=== PATIENT | male | born 1945 | race American Indian/Alaskan Native ===

== ENCOUNTER 2016-05-12 13:18 | Inpatient (IN) | payer MEDICARE ==
[2016-05-12] MEDS ORDERED: NORCO 5/325 PO ONE (14:57)
--- NOTE | 2016-05-12 15:04 | Emergency Department Report ---
HPI - General Chief Complaint: Fall Time Seen by Provider: 05/12/16 14:55 - HPI HPI: Chief complaint: Fall HPI: Patient is a 71-year-old male status post right BKA and left AKA who is wheelchair bound states he fell out of the bed earlier this morning and then was placed in a wheelchair and fell asleep and fell forward out of the wheelchair hitting his head. Patient complains of pain and swelling to his right eyebrow area and pain to his mid back patient states he did have some pain to his shoulder and elbow on his left arm but that has resolved. No chest or abdominal pain. Patient is not on any blood thinners. Mode of arrival: EMS] Source: Patient Began: Occurred this morning Duration: Today Context: See above Quality: Dull Severity: 10 out of 10 Improved with: Nothing Worsened with: Movement and palpation worsened since back pain Associated signs and symptoms: Hematoma to the right forehead and a knot to the right upper paralumbar and lower parathoracic musculature ED Past Medical Hx - Past Medical History Previous Medical History?: Yes Hx Hypertension: Yes Hx Heart Attack/AMI: Yes Hx Diabetes: Yes Hx GERD: Yes Hx Renal Disease: Yes (M W F; last dialysis yesterday) Hx Arthritis: Yes Hx Psychiatric Treatment: Yes (depression) Additional medical history: CAD. ESRD. hyperlipidemia. PVD. R BKA/L AKA - Surgical History Past Surgical History?: Yes Additional Surgical History: valve replacement 2011. 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 FISTULA LEFT ARM. TONSILLECTOMY - Social History Smoking Status: Former Smoker Substance Use Type: None - Medications Home Medications: Home Medications Medication Instructions Recorded Confirmed Last Taken Type Carvedilol [Coreg] 25 mg PO BID 06/18/14 03/19/16 Unknown History Cinacalcet HCl [Sensipar] 90 mg PO DAILY 06/18/14 03/19/16 Unknown History Gabapentin 200 mg PO TID 06/18/14 03/19/16 Unknown History AtorvaSTATin [Lipitor] 40 mg PO DAILY 02/14/16 03/19/16 Unknown History Aspirin [Aspirin BABY CHEW TAB] 81 mg PO QDAY #30 tab.chew 03/20/16 Unknown Rx Losartan [Cozaar] 25 mg PO QDAY tablet 04/06/16 Unknown Rx Sertraline [Zoloft] 50 mg PO QDAY tablet 04/06/16 Unknown Rx amLODIPine [Norvasc] 10 mg PO QDAY tablet 04/06/16 Unknown Rx hydrALAZINE [Apresoline TAB] 100 mg PO Q8HR tab 04/06/16 Unknown Rx traMADol [Ultram 50 MG tab] 50 mg PO Q6HR PRN #20 tablet 04/07/16 Unknown Rx ED Review of Systems ROS: Stated complaint: FALL Other details as noted in HPI ROS Constitutional: No fever ENT: No uri symptoms Cardiovascular: No chest pain Respiratory: No sob or cough GI: No nausea vomiting or diarrhea : No dysuria frequency or urgency, Skin: No rash Neuro: No focal weakness or numbness Psych: No depression Anderson/lymph: No edema Physical Exam - Physical Exam Vital Signs: Vital Signs 05/12/16 05/12/16 13:51 13:55 Temperature 98.1 F 98.1 F Pulse Rate 77 77 Respiratory 16 16 Rate Blood Pressure 157/78 Blood Pressure 157/78 [Right] O2 Sat by Pulse 98 98 Oximetry Physical Exam: GENERAL: The patient is a thin elderly -Prydeinig male in no acute distress HEENT: Normocephalic. Patient with a hematoma to the right superior orbital rim. Extraocular motions are intact. Patient has moist mucous membranes. NECK: Supple. Nontender No meningitic signs are noted. There is no adenopathy noted. CHEST/LUNGS: Clear to auscultation. There is no respiratory distress noted. HEART/CARDIOVASCULAR: Regular. There is no tachycardia. There is a systolic murmur ABDOMEN: Abdomen is soft, nontender. Patient has normal bowel sounds. There is no abdominal distention. SKIN: There is no rash. There is no edema. There is no diaphoresis. NEURO: The patient is awake, alert, and oriented. The patient is cooperative. The patient has no focal neurologic deficits. The patient has normal speech. MUSCULOSKELETAL: There is tenderness and spasm to the right mid back para spinal. Patient has a right BKA and a left AKA. Patient also has had his left index finger amputated. ED Course Vital Signs 05/12/16 05/12/16 13:51 13:55 Temperature 98.1 F 98.1 F Pulse Rate 77 77 Respiratory 16 16 Rate Blood Pressure 157/78 Blood Pressure 157/78 [Right] O2 Sat by Pulse 98 98 Oximetry - Reevaluation(s) Reevaluation #1: 05/12/16 15:04 Patient given Hallie 5 by mouth Reevaluation #2: 05/12/16 18:[address] lumbar with radiologist who recommends MRI with and without IV contrast to rule out discitis or osteomyelitis. Discussed with Dr. Lancaster the patient's space and [employer] who has agreed to dialyze the patient in the morning after the MR. Patient also was given 4 mg of morphine and 4 mg of Zofran IV. Reevaluation #3: 05/12/16 19:43 Patient was signed out to Dr. Pang. He will review the MRI readings and arrange for admission or transfer as needed. Hospitalist has been advised of this patient needing to be admitted here for dialysis in the morning if he does not require transfer to another facility. ED Medical Decision Making - Lab Data Result diagrams: 05/12/16 18:27 05/12/16 18:27 Laboratory Tests 05/12/16 05/12/16 18:27 18:27 ESR 43 Calcium 8.0 L C-Reactive Protein 3.80 H - Radiology Data Radiology results: report reviewed (CT of the head and C-spine showed a hematoma to the right forehead but no other acute abnormality. CT of the lumbar spine showed lytic lesion especially to L2-3 that was concerning for discitis or osteomyelitis and it was recommended that an MRI be performed.) interpreted by me: Plain thoracic: Lumbar spine showed abnormality L2-3 consistent with a lytic lesion and CT lumbar was ordered. Critical care attestation.: If time is entered above; I have spent that time in minutes in the direct care of this critically ill patient, excluding procedure time. ED Disposition Clinical Impression: ESRD (end stage renal disease) on dialysis, Lesion of lumbar spine Disposition: MEDICAL SCREENING EXAM-CONT Is pt being admited?: Yes Does the pt Need Aspirin: No Condition: Undetermined Time of Disposition: 19:42
--- NOTE | 2016-05-12 15:28 | Cat Scan Report ---
FINAL REPORT PROCEDURE: CT HEAD/BRAIN WO CON TECHNIQUE: Computerized tomography of the head was performed without contrast material. HISTORY: hematoma/ pain COMPARISON: Head CT dated February 14, 2016 FINDINGS: Diffuse soft tissue vascular calcifications are seen likely due to diabetes or abnormal calcium metabolism. Left-sided otitis media and mastoiditis are suspected, a changed appearance from prior study. Moderate changes of acute sinusitis are seen. Large hematoma is seen in the right side of the forehead and right periorbital region. No calvarial fracture is seen. Cerebral ventricles are normal in size. Old lacunar infarct is seen in the left side of the erick. Mild chronic small vessel ischemic changes are seen in the periventricular white matter. No acute CVA is seen. No acute intracranial hemorrhage or mass effect is seen. IMPRESSION: Large hematoma is seen in the right side of the forehead without evidence of calvarial fracture or acute intracranial hemorrhage. Changes of left-sided otitis media and mastoiditis are suspected and there are new moderate changes of sinusitis.
--- NOTE | 2016-05-12 15:33 | Cat Scan Report ---
FINAL REPORT PROCEDURE: CT CERVICAL SPINE WO CON TECHNIQUE: Computerized tomography of the cervical spine was performed from the skull base to T1 without contrast material. HISTORY: hematoma/ pain COMPARISON: No prior studies are available for comparison. FINDINGS: Cervical lordosis is preserved. Erosive arthritic changes are seen in the cervical spine. Ligamentum flavum calcification and uncovertebral osteophytes at C5-6 cause moderate central canal stenosis. Similar moderate stenosis is seen due to calcified disc bulge and ligamentum flavum hypertrophy at C4-5 and C3-4 as well as C6-7. There is no subluxation. No prevertebral edema is seen. No fracture is seen. Diffuse atherosclerotic calcifications are seen. IMPRESSION: No C-spine fracture is seen.
--- NOTE | 2016-05-12 17:38 | Cat Scan Report ---
FINAL REPORT PROCEDURE: CT LUMBAR SPINE WO CON TECHNIQUE: Computerized axial tomography of the lumbar spine was performed from T12 to the sacrum without contrast material. HISTORY: abn L2 on xray.pain fall COMPARISON: No prior studies are available for comparison. FINDINGS: Prominent erosive changes are seen at L2-3 with less prominent erosive changes at L4-5. Furthermore, central Schmorl's node formation is seen in the superior endplate of L2 and inferior endplate of T11. Discitis and osteomyelitis cannot be excluded at L2-3 as there appears to be mild adjacent soft tissue density. Correlation with contrast-enhanced MRI is recommended. Bones have a diffusely osteomalacia appearance, also. 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 Likely changes of polycystic renal disease are seen in the kidneys. L1-2: Mild posterior element hypertrophy and diffuse disc bulge cause little stenosis. L2-3: Posterior element hypertrophy and calcified diffuse disc bulge result in moderate central canal and prominent lateral recess stenosis. Uncovertebral osteophytes and posterior element hypertrophy cause moderate bilateral neural foraminal stenosis. L3-4: Calcified disc bulge and posterior element hypertrophy cause moderate lateral recess and neural foraminal narrowing with mild central canal narrowing. L4-5: Posterior element hypertrophy is seen with diffuse calcified disc bulge. Thecal sac effacement is seen with possible chronic compression. Prominent lateral recess stenosis is seen bilaterally with moderate to prominent bilateral neural foraminal stenosis. L5-S1: Calcified central disc bulge with posterior element hypertrophy result and mild right-sided and moderate left-sided neural foraminal stenosis with prominent lateral recess and moderate central canal stenosis. Other: None. IMPRESSION: Erosive changes are seen within the L2-3 disc space and vertebrae with possible adjacent mild soft tissue density. Findings are worrisome for possible discitis and osteomyelitis but other erosive arthritis is not excluded. Less prominent erosive changes are seen associated with the inferior endplate of L5. Further evaluation with contrast-enhanced MRI is recommended. Posterior element hypertrophy and chronic calcified disc bulges result in areas of significant stenosis as described above.
[2016-05-12] MEDS ORDERED: MORPHINE IV ONE (18:18)
[2016-05-12] MEDS ORDERED: ZOFRAN IV ONE (18:18)
[2016-05-12 18:51] LABS: Basophils % (Auto) 0.8 % (0.0-1.8); Eosinophils % (Auto) 2.4 % (0.0-4.3); Hematocrit 28.3 % (35.5-45.6); Mean Corpuscular HGB Conc 32 % (32-34); Mean Corpuscular Hemoglobin 28 pg (28-32); Mean Corpuscular Volume 89 fl (84-94); Platelet Count 342 K/mm3 (140-440); Red Cell Distribution Width 18.4 % (13.2-15.2); White Blood Count 8.8 K/mm3 (4.5-11.0)
[2016-05-12 18:55] LABS: BUN/Creatinine Ratio 6.66; C-Reactive Protein 3.8 mg/dL (0.00-1.30); Chloride 98.7 mmol/L (98-107); Potassium 3.3 mmol/L (3.6-5.0)
[2016-05-12 19:18] LABS: Erythrocyte Sedimentation Rate 43 mm/Hr (0-20)
--- NOTE | 2016-05-12 21:18 | Magnetic Resonance Report ---
FINAL REPORT PROCEDURE: MR LUMBAR SPINE WO/W CON TECHNIQUE: Magnetic resonance imaging of the lumbar spine was performed using standard pulse sequences before and after the IV injection of paramagnetic contrast. CPT 78263 HISTORY: abn CT c/w discitis osteomyelitis versus arthritis COMPARISON: CT exam from the same day. FINDINGS: The conus terminates at the L1 level. Edema is seen in the paraspinous musculature and subcutaneous fat of the lower back. This edema enhances and is worrisome for cellulitis. Similar enhancing edema is seen adjacent to the L2-3 disc space level. There is enhancement of the L2-3 disc which has heterogeneous hypointense T2 areas that have increased T1 hyperintensity possibly due to calcifications or mild hemorrhage. Minimal enhancement is suggested of the inferior endplate of L2 consistent with osteomyelitis. There is mild endplate enhancement anteriorly in the inferior endplate of L5 which could be due to degenerative endplate changes or possibly mild osteomyelitis. There is likely very minimal enhancement of the anterior aspect of the L5-S1 disc superiorly associated with the erosive area in the inferior endplate of L5. L1-2: Mild disc bulge is seen with no significant stenosis. L2-3: Uncovertebral osteophytes and posterior element hypertrophy cause prominent thecal sac effacement without compression. Moderate neural foraminal narrowing is seen. L3-4: Mild disc bulge and posterior element hypertrophy causes mild stenosis in the central canal, lateral recesses, and neural foramina L4-5: Posterior element hypertrophy and diffuse disc bulge with uncovertebral osteophytes causes moderate bilateral neural foraminal stenosis. Prominent central canal stenosis is seen with possible compression of the thecal sac. Prominent lateral recess stenosis is seen. L5-S1: Uncovertebral osteophytes are seen with calcified central disc bulge or protrusion. Prominent central canal narrowing is seen with thecal sac effacement but no definite compression. Prominent lateral recess stenosis is seen with moderate bilateral neural foraminal narrowing. Other: None . IMPRESSION: There is enhancement of the paraspinous musculature in the back as well as more anteriorly in the psoas musculature adjacent to the L2-3 level. These findings suggest cellulitis. No soft tissue abscess is seen. No epidural involvement is seen. Likely changes of discitis and osteomyelitis are seen within the L2-3 disc and the inferior endplate of L2 as well as the L5-S1 disc and inferior endplate of L5. L2 involvement is greater than L5 involvement. Consideration should be given to tuberculosis and other granulomatous infections in addition to the traditional bacterial infections. Chronic bony and discogenic changes in the lumbar spine cause areas of significant stenosis with possible thecal sac compression at L4-5 and L2-3.
[2016-05-12] MEDS ORDERED: VANCOMYCIN VIAL IV ONE (22:09)
[2016-05-12] MEDS ORDERED: MAXIPIME/NS 2 GM/100 ML 100 ML IV ONE (22:09)
--- NOTE | 2016-05-12 22:25 | Event Note ---
Date: 05/12/16 Patient had been signed out to me by Dr. Vasquez to follow-up MRI for concern of osteomyelitis versus discitis. MRI finished and appears to show evidence of cellulitis, discitis, possible myelitis. Patient on my exam does have tenderness to the lower thoracic spine, there is some slight swelling on the left side of the spine. Patient doesn't have any new neuro deficits on exam. A dose of vancomycin and cefepime has been ordered. Given that the patient does not have a space-occupying lesion or or abscess there is no need for neurosurgical intervention and the patient was endorsed to the hospitalist for admission.
[2016-05-12] MEDS ORDERED: VANCOMYCIN VIAL 1,250 MG in NACL 0.9% 250ML 250 ML IV ONE (22:30)
[2016-05-12] MEDS ORDERED: VANCOMYCIN PHARMACY TO DOSE IV SCH (23:00)
--- NOTE | 2016-05-12 23:12 | History and Physical Report ---
[id number] HTN, DM, ESRD on HD, CAD comes to the emergency room for evaluation of fall. The patient rolled out of bed this morning and fell on the floor. Later on in the day, he was napping in his wheel chair and he fell out of the chair and hit the right eye. He complained of back pain, mid back, sharp pain, constant, intensity 7/10, no radiation , better with pain medications Patient denies chest pain, palpitation, shortness of breath, cough, abdominal pain, hematochezia, dysuria, frequency, focal weakness, dysarthria, fever chills , polydipsia polyuria, hot or cold intolerance, easy bruisability, or rash or bleeding from mucosal membrane, rhinorrhea, epistaxis, earache, tinnitus, blurry vision, eye discharge, anxiety, depression. Other review of systems negative PAST SURGICAL HISTORY: Right BKA, left AKA, AV fistula SOCIAL HISTORY: Denies alcohol, tobacco, drugs FAMILY HISTORY: Hypertension Medications and Allergies Allergies Allergy/AdvReac Type Severity Reaction Status Date / Time No Known Allergies Allergy Verified 03/29/16 13:22 Home Medications Medication Instructions Recorded Confirmed Last Taken Type Carvedilol [Coreg] 25 mg PO BID 06/18/14 05/12/16 Unknown History Cinacalcet HCl [Sensipar] 90 mg PO DAILY 06/18/14 05/12/16 Unknown History Gabapentin 200 mg PO TID 06/18/14 05/12/16 Unknown History AtorvaSTATin [Lipitor] 40 mg PO DAILY 02/14/16 05/12/16 Unknown History Aspirin [Aspirin BABY CHEW TAB] 81 mg PO QDAY #30 tab.chew 03/20/16 05/12/16 Unknown Rx Losartan [Cozaar] 25 mg PO QDAY tablet 04/06/16 05/12/16 Unknown Rx Sertraline [Zoloft] 50 mg PO QDAY tablet 04/06/16 05/12/16 Unknown Rx amLODIPine [Norvasc] 10 mg PO QDAY tablet 04/06/16 05/12/16 Unknown Rx hydrALAZINE [Apresoline TAB] 100 mg PO Q8HR tab 04/06/16 05/12/16 Unknown Rx traMADol [Ultram 50 MG tab] 50 mg PO Q6HR PRN #20 tablet 04/07/16 05/12/16 Unknown Rx Active Meds: Active Medications Vancomycin HCl 1,250 mg/ (Sodium Chloride) 250 mls @ 166.667 mls/hr IV ONCE.ED ONE Stop: 05/12/16 23:59 Vancomycin HCl (Vancomycin Pharmacy To Dose) 1 each IV PKCONSULT JALEESA PRN Reason: Protocol Exam - Physical Exam Narrative exam: Gen. appearance: Patient lying in bed, no apparent distress HEENT: Normocephalic, atraumatic, pupils equally round and reactive to light, right eye is swollen, extraocular movement intact left eye, and no sclericterus ,. No JVD or thyromegaly or nodule,neck supple, no carotid bruit ,mucous membranes moist, no exudate or erythema Heart: S1, S2, regular rate and rhythm Lungs: Clear to auscultation bilaterally, breathing comfortable Abdomen: Positive bowel sounds, nontender, nondistended, no organomegaly Extremity: No edema, cyanosis, clubbing Skin: Sacral decubitus, No rash, nodules, warm, dry Neuro: Oriented 3, cranial nerves II-12 intact, speech is fluent, motor and sensory intact - Constitutional Vitals: Temp Pulse Resp BP Pulse Ox 98.1 F 74 16 137/62 95 05/12/16 13:55 05/12/16 23:01 05/12/16 23:01 05/12/16 23:01 05/12/16 23:01 Results - Labs CBC & Chem 7: 05/13/16 04:43 05/13/16 04:43 Labs: Abnormal lab results 05/12/16 05/12/16 Range/Units 18:27 18:27 RBC 3.20 L (3.65-5.03) M/mm3 Hgb 9.0 L (11.8-15.2) gm/dl Hct 28.3 L (35.5-45.6) % RDW 18.4 H (13.2-15.2) % Lymph % (Auto) 11.5 L (13.4-35.0) % [place] % (Auto) 8.6 H (0.0-7.3) % Lymph # 1.0 L (1.2-5.4) K/mm3 Seg Neutrophils % 76.7 H (40.0-70.0) % Potassium 3.3 L (3.6-5.0) mmol/L Creatinine 3.0 H (0.8-1.5) mg/dL Calcium 8.0 L (8.4-10.2) mg/dL C-Reactive Protein 3.80 H (0.00-1.30) mg/dL - Imaging and Cardiology CT Scan - head: report reviewed Assessment and Plan MRI, CT of spine reviewed Osteomylitis ESRD,need dialysis, s/p contrast Hypokalemia Hypertension CAD Diabetes 2 Sacral Decubitus Admiti to medicine s/p vancomycin, start zosyn, consult ID, follow blood cultures Check fingersticks, start insulin slidig scale, consult renal Continue outpatient medications, start dvt prophalaxis Consult wound care, replete potassium
--- NOTE | 2016-05-13 00:14 | Admit Criteria Form ---
Admission Criteria Documentation: RENAL FAILURE, CHRONIC Clinical Indications for Admission to Inpatient Care (Place 'X' for any and all applicable criteria): Admission is indicated for ANY ONE of the following (1)(2)(3)(4)(5): [ X]I. Inpatient admission required rather than observation care (Use Renal Failure, Chronic: Observation Care Criteria as appropriate) because of ANY ONE of the following: [ ]a) Volume overload or uremic symptoms (eg, clinically significant pulmonary edema, hypertension, pericarditis, acidosis) too severe for, or not responsive (eg, for over 24 hours) to emergency department or observation care dialysis or treatment regimen (11) [ ]b) Hemodynamic instability that is severe or persistent [ ]c) Respiratory distress that is severe or persistent (11) [ ]d) Clinically significant electrolyte abnormality that requires inpatient care (eg,hyperkalemia with severe ECG findings)[B] [ ]e) Supplement O2 or respiratory therapy for over 24hrs that is performable only in acute inpatient setting [ ]f) Continuous IV infusion of anticoagulation, platelet inhibitor, vasoactive, or Antiarrhythmic medication (15), [ ]g) Pulmonary artery catheter monitoring [ ]h) Temporary pacemaker placement [ ]i) Emergent pericardiocentesis [ X]j) Other condition, treatment or monitoring requiring inpatient admission [ ]II. Unexplained syncope [A] [ ]III. Recurrent seizures [ ]IV. Severe infections not treatable in outpatient setting (eg, peritonitis)(9 ) [ ]V. Cardiac arrhythmias of immediate concern [ ]. Encephalopathy [ ]VII.Bleeding abnormalities (eg, platelet dysfunction) with active (eg, gastrointestinal) bleeding Extended stay beyond goal length of stay may be needed for (3)(4)(35)(36): [ ]a) Continuing uremic complications [ ]b) Comorbidities or complications The original [employer] content created by [employer] has been revised. The portions of the content which have been revised are identified through the use of italic text or in bold, and [employer] has neither reviewed nor approved the modified material. All other unmodified content is copyright [employer]. Please see references footnoted in the original [email or web address] edition 2016 Admission Criteria Met: Yes
[2016-05-13] MEDS ORDERED: TYLENOL PO PRN (01:11)
[2016-05-13] MEDS ORDERED: MILK OF MAGNESIA PO PRN (01:11)
[2016-05-13] MEDS ORDERED: DULCOLAX PR PRN (01:11)
[2016-05-13] MEDS ORDERED: K-DUR PO ONE (01:11)
[2016-05-13] MEDS ORDERED: D50W (25GM) IV PRN (01:11)
[2016-05-13] MEDS: ZOSYN/NS 2.25 GM/50ML 50 ML IV SCH ×2 (02:32→10:00)
[2016-05-13 06:05] LABS: BUN/Creatinine Ratio 6.48; Calcium 8.2 mg/dL (8.4-10.2); Chloride 100.4 mmol/L (98-107); Potassium 3.1 mmol/L (3.6-5.0)
[2016-05-13 06:47] LABS: Basophils % (Auto) 0.5 % (0.0-1.8); Eosinophils % (Auto) 3.8 % (0.0-4.3); Hematocrit 30.5 % (35.5-45.6); Hemoglobin 9.8 gm/dl (11.8-15.2); Mean Corpuscular HGB Conc 32 % (32-34); Mean Corpuscular Hemoglobin 28 pg (28-32); Mean Corpuscular Volume 88 fl (84-94); Platelet Count 290 K/mm3 (140-440); Red Blood Count 3.47 M/mm3 (3.65-5.03); Red Cell Distribution Width 18.6 % (13.2-15.2); White Blood Count 8.8 K/mm3 (4.5-11.0)
[2016-05-13] MEDS: NOVOLOG SUB-Q SCH ×4 (07:50→22:32)
[2016-05-13] MEDS: LOVENOX SUB-Q SCH (09:51)
--- NOTE | 2016-05-13 09:57 | XRay Report ---
Thoracolumbar spine 2 views: History: Fall back pain. Findings: There is marked narrowing noted of the L2-L3 interspace with minimal narrowing of the L1-L2 interspace. The L2-L3 disc is obscured by overlying bowel gas. No obvious evidence of acute fracture is seen. There is degenerative changes noted at the lower thoracic and lumbar vertebral bodies. Calcified abdominal aorta without obvious evidence of aneurysm. Impression: Findings as detailed above. Correlation with CT findings or Mri may be advised.
[2016-05-13] MEDS: NORCO 5/325 PO PRN (12:01)
--- NOTE | 2016-05-13 12:27 | Consultation ---
History of Present Illness - Reason for Consult Consult date: 05/13/16 end stage renal disease - History of Present Illness Mr. Singh is a 71 yo with ESRD, PVD s/p amputation who presente to the ED following two falls at home. Marilee fell from bed onto floor, and later in the day, he was in his wheelchair when he fell forward, out of chair,hitting his right eye. Upon arrival to ED, patient reports back pain. He was admitted for further management Past History Past Medical History: anemia (secondary to ESRD), diabetes, ESRD, hypertension, PVD Past Surgical History: Other (revascularization, Right BKA, left AKA, AV fistula ) Social history: denies: smoking, alcohol abuse Family history: no significant family history Medications and Allergies Allergies Allergy/AdvReac Type Severity Reaction Status Date / Time No Known Allergies Allergy Verified 03/29/16 13:22 Home Medications Medication Instructions Recorded Confirmed Last Taken Type Carvedilol [Coreg] 25 mg PO BID 06/18/14 05/12/16 Unknown History Cinacalcet HCl [Sensipar] 90 mg PO DAILY 06/18/14 05/12/16 Unknown History Gabapentin 200 mg PO TID 06/18/14 05/12/16 Unknown History AtorvaSTATin [Lipitor] 40 mg PO DAILY 02/14/16 05/12/16 Unknown History Aspirin [Aspirin BABY CHEW TAB] 81 mg PO QDAY #30 tab.chew 03/20/16 05/12/16 Unknown Rx Losartan [Cozaar] 25 mg PO QDAY tablet 04/06/16 05/12/16 Unknown Rx Sertraline [Zoloft] 50 mg PO QDAY tablet 04/06/16 05/12/16 Unknown Rx amLODIPine [Norvasc] 10 mg PO QDAY tablet 04/06/16 05/12/16 Unknown Rx hydrALAZINE [Apresoline TAB] 100 mg PO Q8HR tab 04/06/16 05/12/16 Unknown Rx traMADol [Ultram 50 MG tab] 50 mg PO Q6HR PRN #20 tablet 04/07/16 05/12/16 Unknown Rx Active Meds: Active Medications Acetaminophen (Tylenol) 650 mg PO Q4H PRN PRN Reason: Pain MILD(1-3)/Fever >100.5/PORRAS Acetaminophen/Hydrocodone Bitart ([place] 5/325) 1 each PO Q8H PRN PRN Reason: Pain, Moderate (4-6) Last Admin: 05/13/16 12:01 Dose: 1 each Bisacodyl (Dulcolax) 10 mg DC QDAY PRN PRN Reason: Constipation unrelieved by MOM Dextrose (D50w (25gm)) 50 ml IV PRN PRN PRN Reason: Hypoglycemia Enoxaparin Sodium (Lovenox) 30 mg SUB-Q QDAY [facility] Last Admin: 05/13/16 09:51 Dose: 30 mg Insulin Aspart (Novolog) 0 units SUB-Q ACHS [facility] PRN Reason: Protocol Last Admin: 05/13/16 11:56 Dose: Not Given Magnesium Hydroxide (Milk Of Magnesia) 30 ml PO Q4H PRN PRN Reason: Constipation Morphine Sulfate (Morphine) 2 mg IV Q4H PRN PRN Reason: Pain, Moderate (4-6) Ondansetron HCl (Zofran) 4 mg IV Q8H PRN PRN Reason: N/V unrelieved by Reglan Review of Systems Constitutional: no fever, no chills Cardiovascular: no chest pain, no orthopnea, no shortness of breath Respiratory: no cough Gastrointestinal: no abdominal pain, no nausea, no vomiting, no diarrhea, no constipation, no BRBPR, no melena Genitourinary Male: no dysuria Integumentary: no rash Neurological: no weakness, no parathesias Exam - Vital Signs Vital signs: Vital Signs Pulse Ox 97 05/12/16 13:44 - General Appearance General appearance: well-developed, well-nourished Respiratory: Clear to Ascultation Heart: regular, S1S2 Gastrointestinal: Present: normal. Absent: tenderness, distended Integumentary: no rash Neurologic: no focal deficit Musculoskeletal: Present: other (Right BKA, left AKA) Psychiatric: mood/affect appropriate, cooperative Results - Lab Results 05/13/16 04:43 05/13/16 04:43 Most recent lab results Calcium 8.2 mg/dL (8.4-10.2) L 05/13/16 04:43 Assessment and Plan Impression: * End stage renal disease on hemodiaysis * Erosive changes L2-3, L5-S1 * Peripheral artery disease * Hypertension * Type II DM * Anemia secondary to ESRD * Secondary hyperparathyroidism Plan: * Imaging reviewed. Imaging was discussed with Dr. Ocampo and patient was cleared from a renal standpoint for CT w/ contrast. However, patient had MRI with contrast without approval of nephrology given risk of nephrogenic systemic fibrosis due to gadolinium. * Hemodialysis today * In light of gadolinium exposure, will plan for HD on Saturday and Saturday as well * Note plans for bone bx tomorrow * Epogen for goal Hb 10-12 * Renal diet
--- NOTE | 2016-05-13 12:36 | Consultation ---
History of Present Illness - Reason for Consult Consult date: 05/13/16 lumbar osteomyelitis/discitis - History of Present Illness Mr Singh is a 71y/o AA male with a known history of HTN, ESRD/HD/left AVF, PVD s/p left AKA, right BKA, bioprosthetic AVR ( 2009?), DM-2, Neuropathy, Anemia, HLD, and recent hospitalization 04/06 for sharla esophagitis.. He presents for admission on 05/12/16 status post a fall with right periorbital contusion/ hematoma. Following the fall he complained of low back pain. Imaging by CT and MRI raises questions regarding possible lumbar spine discitis/osteomyelitis. The patient on repeat questioning notes that his back pain started following this fall. He is unaware of any chronic back problems or spinal infection. The patient is unaware of his reasons for needing his aortic valve replacement. He is not aware of any infection of his previous heart valve. Currently the patient denies any fever or chills. He has slight nonproductive cough but no other focal symptoms of infection. He denies any headache or blurred vision. Patient has undergone a CT of his lumbar spine which showed erosive changes of L2-3 disc space and vertebral bodies with questionable adjacent soft tissue swelling raising the possible diagnosis of discitis/osteomyelitis. He then had a contrast enhanced MRI which shows enhanced paraspinous musculature at L2-3 with possible discitis/osteomyelitis at L2-3 and at the inferior endplate of L5. Chronic bone changes were otherwise noted with stenosis of L2-3, L4-5. Patient's C-reactive protein is 3.8. CBC shows a normal white count 8800 with 74% segs. Hemoglobin is 9.8. Platelet count 290,000. The patient initially received empiric Zosyn, cefepime and vancomycin. He is now seen for further ID follow. Medications and Allergies Allergies Allergy/AdvReac Type Severity Reaction Status Date / Time No Known Allergies Allergy Verified 03/29/16 13:22 Home Medications Medication Instructions Recorded Confirmed Last Taken Type Carvedilol [Coreg] 25 mg PO BID 06/18/14 05/12/16 Unknown History Cinacalcet HCl [Sensipar] 90 mg PO DAILY 06/18/14 05/12/16 Unknown History Gabapentin 200 mg PO TID 06/18/14 05/12/16 Unknown History AtorvaSTATin [Lipitor] 40 mg PO DAILY 02/14/16 05/12/16 Unknown History Aspirin [Aspirin BABY CHEW TAB] 81 mg PO QDAY #30 tab.chew 03/20/16 05/12/16 Unknown Rx Losartan [Cozaar] 25 mg PO QDAY tablet 04/06/16 05/12/16 Unknown Rx Sertraline [Zoloft] 50 mg PO QDAY tablet 04/06/16 05/12/16 Unknown Rx amLODIPine [Norvasc] 10 mg PO QDAY tablet 04/06/16 05/12/16 Unknown Rx hydrALAZINE [Apresoline TAB] 100 mg PO Q8HR tab 04/06/16 05/12/16 Unknown Rx traMADol [Ultram 50 MG tab] 50 mg PO Q6HR PRN #20 tablet 04/07/16 05/12/16 Unknown Rx Active Meds: Active Medications Acetaminophen (Tylenol) 650 mg PO Q4H PRN PRN Reason: Pain MILD(1-3)/Fever >100.5/PORRAS Acetaminophen/Hydrocodone Bitart ([place] 5/325) 1 each PO Q8H PRN PRN Reason: Pain, Moderate (4-6) Last Admin: 05/13/16 12:01 Dose: 1 each Bisacodyl (Dulcolax) 10 mg ND QDAY PRN PRN Reason: Constipation unrelieved by MOM Dextrose (D50w (25gm)) 50 ml IV PRN PRN PRN Reason: Hypoglycemia Enoxaparin Sodium (Lovenox) 30 mg SUB-Q QDAY [facility] Last Admin: 05/13/16 09:51 Dose: 30 mg Insulin Aspart (Novolog) 0 units SUB-Q ACHS [facility] PRN Reason: Protocol Last Admin: 05/13/16 11:56 Dose: Not Given Magnesium Hydroxide (Milk Of Magnesia) 30 ml PO Q4H PRN PRN Reason: Constipation Morphine Sulfate (Morphine) 2 mg IV Q4H PRN PRN Reason: Pain, Moderate (4-6) Ondansetron HCl (Zofran) 4 mg IV Q8H PRN PRN Reason: N/V unrelieved by Reglan Review of Systems Ears, nose, mouth and throat: other Physical Examination - Physical Exam Narrative exam: No acute distress. HEENT: Pupils are equal reactive to light and accommodation. Conjunctiva clear. Left upper and lower eyelid and periorbital swelling with minimal redness. Positive point tenderness. EOMs full. Vision grossly intact. Oropharynx is normal with no evidence of oral candidiasis or pharyngitis. Poor dentition. NECK: Supple. No enlargement of the thyroid gland. No significant cervical lymphadenopathy. No jugular venous distention at 30. LUNGS: Clear with no adventitious sounds. HEART: Regular rate. S1 and S2 are normal. Grade 3/6 systolic ejection murmur left sternal border. No diastolic murmur. No rub. ABDOMEN: Soft and nontender. Liver and spleen are not palpably enlarged or tender. No palpable masses. Bowel sounds are normoactive. EXTREMITIES: Healed wound sites noted at left AKA, right BKA stumps. Absence of left index finger following amputation. Mild low back point tenderness without overlying redness or apparent swelling. Positive thrill and bruit left upper extremity at fistula site. SKIN: No other rash, ulcers or wounds. NEUROLOGIC: No focal findings. - Constitutional Vitals: Vital Signs Temp Pulse Resp BP Pulse Ox 98.3 F 73 20 135/66 97 05/13/16 07:55 05/13/16 07:55 05/13/16 07:55 05/13/16 07:55 05/13/16 10:00 Temperature -Last 24 Hours Temperature 98.3 F Temperature 97.5 F Results - Labs CBC & Chem 7: 05/13/16 04:43 05/13/16 04:43 Labs: Abnormal lab results 05/13/16 05/13/16 05/13/16 Range/Units 04:43 04:43 11:19 RBC 3.47 L (3.65-5.03) M/mm3 Hgb 9.8 L (11.8-15.2) gm/dl Hct 30.5 L (35.5-45.6) % RDW 18.6 H (13.2-15.2) % Lymph % (Auto) 12.1 L (13.4-35.0) % [place] % (Auto) 9.4 H (0.0-7.3) % Lymph # 1.1 L (1.2-5.4) K/mm3 Seg Neutrophils % 74.2 H (40.0-70.0) % Potassium 3.1 L (3.6-5.0) mmol/L Carbon Dioxide 32 H (22-30) mmol/L BUN 24 H (9-20) mg/dL Creatinine 3.7 H (0.8-1.5) mg/dL Glucose 122 H (75-100) mg/dL POC Glucose 115 H (70-105) Calcium 8.2 L (8.4-10.2) mg/dL Assessment and Plan Assessment: Mr Singh is a 71y/o AA male with a known history of HTN, ESRD/HD/left AVF, PVD s/p left AKA, right BKA, bioprosthetic AVR ( 2009?), DM-2, Neuropathy, Anemia, HLD, and recent hospitalization 04/06 for sharla esophagitis.. He presents for admission on 05/12/16 status post a fall with right periorbital contusion/ hematoma. Following the fall he complained of low back pain. Imaging by CT and MRI raises questions regarding possible lumbar spine discitis/osteomyelitis. Antibiotics: Zosyn 2.25 g IV every 8 hour (05/13 Cefepime 2 g IV (05/12 Vancomycin IV ( 05/12 - 05/13) Conclusions: 1. R/O lumbar discitis/osteomyelitis - CT scan with erosive changes L2-3 and vertebral bodies with adjacent soft tissue swelling, erosive changes at L5 - MRI with contrast - enhanced paraspinous musculature at L2-3, R/O discitis/ osteomyelitis at L2-3 and inferior endplate of L5, chronic changes with stenosis L2-3, L4-5 2. Left periorbital contusion/hematoma status post fall - No obvious secondary infection 3. ESRD/HD 4. Status post bioprosthetic aortic valve replacement( ? 2009 [place]) 5. PVD - s/p left AKA, right BKA 6. DM2 7. HTN, anemia, HLD Recommendations: - Suggest IR lumbar biopsies for histology and culture - off antibiotics ( discussed with Dr. Giron ). Samples need to be sent for AFB/TB, fungus, and routine cultures - Check QuantiFERON TB gold assay - Glycemic control as per primary care - Renal follow-up - Blood cultures ordered. - Further recommendations to follow. Thank you.
[2016-05-13] MEDS ORDERED: NACL 0.9% 1000 ML 100 ML IV PRN (13:42)
--- NOTE | 2016-05-13 15:17 | Event Note ---
Date: 05/13/16 Nothing by mouth after midnight. Plan for CT-guided vertebral body biopsy tomorrow by Dr. Méndez.
--- NOTE | 2016-05-13 18:28 | Progress Note ---
Assessment and Plan - Patient Problems (1) Osteomyelitis of lumbar spine Current Visit: Yes Status: Acute Plan to address problem: ID consulted, continue current care, pending biopsy as per IR. (2) ESRD (end stage renal disease) on dialysis Current Visit: Yes Status: Chronic Plan to address problem: Nephrology consulted, dialysis as per nephrology service. (3) Acute on chronic renal failure Current Visit: No Status: Acute Plan to address problem: continue current care, dialysis as per nephrology, (4) Diabetes mellitus type 2 in nonobese Current Visit: No Status: Acute Plan to address problem: ADA diet, insulin, accu check (5) Hypertension Current Visit: No Status: Chronic Plan to address problem: monitor bp q shift, (6) DVT prophylaxis Current Visit: No Status: Acute History Interval history: Pt lying in bed, eating lunch, Pt denies pain. Pt daughter at bedside. Discussed care plan with patient and daughter. No reported nursing events. Hospitalist Physical - Constitutional Vitals: Temp Pulse Resp BP Pulse Ox 98.5 F 79 20 130/75 100 05/13/16 16:45 05/13/16 18:15 05/13/16 16:45 05/13/16 18:15 05/13/16 13:27 General appearance: Present: no acute distress - EENT Eyes: Present: PERRL - Neck Neck: Present: supple - Respiratory Respiratory: bilateral: CTA - Cardiovascular Rhythm: regular Heart Sounds: Present: S1 & S2 Peripheral Pulses: within normal limits - Abdominal General gastrointestinal: soft, non-tender, non-distended, no hepatomegaly, no splenomegaly - Integumentary Integumentary: Present: clear, dry - Psychiatric Psychiatric: appropriate mood/affect, cooperative - Neurologic Neurologic: CNII-XII intact Results - Labs CBC & Chem 7: 05/13/16 04:43 05/13/16 04:43 Labs: Laboratory Last Values WBC 8.8 K/mm3 (4.5-11.0) 05/13/16 04:43 RBC 3.47 M/mm3 (3.65-5.03) L 05/13/16 04:43 Hgb 9.8 gm/dl (11.8-15.2) L 05/13/16 04:43 Hct 30.5 % (35.5-45.6) L 05/13/16 04:43 MCV 88 fl (84-94) 05/13/16 04:43 MCH 28 pg (28-32) 05/13/16 04:43 MCHC 32 % (32-34) 05/13/16 04:43 RDW 18.6 % (13.2-15.2) H 05/13/16 04:43 Plt Count 290 K/mm3 (140-440) 05/13/16 04:43 Lymph % (Auto) 12.1 % (13.4-35.0) L 05/13/16 04:43 [place] % (Auto) 9.4 % (0.0-7.3) H 05/13/16 04:43 Eos % (Auto) 3.8 % (0.0-4.3) 05/13/16 04:43 Baso % (Auto) 0.5 % (0.0-1.8) 05/13/16 04:43 Lymph # 1.1 K/mm3 (1.2-5.4) L 05/13/16 04:43 [place] # 0.8 K/mm3 (0.0-0.8) 05/13/16 04:43 Eos # 0.3 K/mm3 (0.0-0.4) 05/13/16 04:43 Baso # 0.0 K/mm3 (0.0-0.1) 05/13/16 04:43 Seg Neutrophils % 74.2 % (40.0-70.0) H 05/13/16 04:43 Seg Neutrophils # 6.5 K/mm3 (1.8-7.7) 05/13/16 04:43 ESR 43 mm/Hr (0-20) 05/12/16 18:27 Sodium 145 mmol/L (137-145) 05/13/16 04:43 Potassium 3.1 mmol/L (3.6-5.0) L 05/13/16 04:43 Chloride 100.4 mmol/L (98-107) 05/13/16 04:43 Carbon Dioxide 32 mmol/L (22-30) H 05/13/16 04:43 Anion Gap 16 mmol/L 05/13/16 04:43 BUN 24 mg/dL (9-20) H 05/13/16 04:43 Creatinine 3.7 mg/dL (0.8-1.5) H 05/13/16 04:43 Estimated GFR 20 ml/min 05/13/16 04:43 BUN/Creatinine Ratio 6.48 % 05/13/16 04:43 Glucose 122 mg/dL (75-100) H 05/13/16 04:43 POC Glucose 184 (70-105) H 05/13/16 16:36 Calcium 8.2 mg/dL (8.4-10.2) L 05/13/16 04:43 C-Reactive Protein 3.80 mg/dL (0.00-1.30) H 05/12/16 18:27
[2016-05-14] MEDS: NORCO 5/325 PO PRN (07:08)
[2016-05-14] MEDS: NOVOLOG SUB-Q SCH ×3 (07:42→21:53)
--- NOTE | 2016-05-14 09:31 | Progress Note ---
Assessment and Plan Impression: * End stage renal disease on hemodiaysis * Erosive changes L2-3, L5-S1 * Peripheral artery disease * Hypertension * Type II DM * Anemia secondary to ESRD * Secondary hyperparathyroidism Plan: * Hemodialysis today; will plan for HD on Saturday and Saturday as patient is s/p gadolinium exposure * UF as tolerated * Note plans for bone bx today * Continue antiHTN medications * Epogen for goal Hb 10-12 * Renal diet Subjective Date of service: 05/14/16 Interval history: Patient has no complaints today. Objective - Vital Signs Vital signs: Vital Signs - 12hr 05/13/16 05/13/16 05/13/16 22:00 22:28 23:19 Temperature 98.8 F Pulse Rate [ 84 Right Radial] Respiratory 22 18 Rate Blood Pressure 144/69 [Right Arm] O2 Sat by Pulse 96 100 Oximetry 05/14/16 05/14/16 07:46 08:00 Temperature 98.2 F Pulse Rate [ 80 Right Radial] Respiratory 20 Rate Blood Pressure 164/80 [Right Arm] O2 Sat by Pulse 100 97 Oximetry - General Appearance General appearance: well-developed, well-nourished EENT: ATNC Respiratory: Present: Clear to Ascultation Cardiology: regular, S1S2 Gastrointestinal: normal, no tenderness, no distended Integumentary: no rash Neurologic: alert and oriented x3 Musculoskeletal: other (bilateral amputee) Psychiatric: mood/affect appropriate, cooperative - Lab 05/13/16 04:43 05/13/16 04:43 Most recent lab results Calcium 8.2 mg/dL (8.4-10.2) L 05/13/16 04:43
--- NOTE | 2016-05-14 10:16 | Progress Note ---
Assessment and Plan Current antibiotics: None Previous antibiotics: Zosyn 2.25 g IV q8h 05/13 Cefepime 2 g IV 05/12 Vancomycin IV (05/12-05/13) ASSESSMENT: Bill Singh is a 71y/o male with HTN, ESRD on maintenance HD via a left AVF, PVD s/p left AKA & right BKA, bioprosthetic AVR (2009?), DM-2, peripheral neuropathy, anemia, HLD, and recent hospitalization 04/06 for sharla esophagitis who was admitted to [facility] on 05/12/16 status post a fall with right periorbital contusion/ hematoma. Following the fall he complained of low back pain and CT and MRI raises questions regarding possible lumbar spine discitis/ osteomyelitis. Problem list: 1. R/O lumbar discitis/osteomyelitis - CT scan with erosive changes L2-3 and vertebral bodies with adjacent soft tissue swelling, erosive changes at L5 - MRI with contrast - enhanced paraspinous musculature at L2-3, R/O discitis/ osteomyelitis at L2-3 and inferior endplate of L5, chronic changes with stenosis L2-3, L4-5 2. Left periorbital contusion/hematoma status post fall - No obvious secondary infection 3. ESRD/HD 4. Status post bioprosthetic aortic valve replacement( ? 2009 [place]) 5. PVD - s/p left AKA, right BKA 6. DM2 7. HTN, anemia, HLD PLAN: 1. For lumbar biopsies as per IR for histology and culture - off antibiotics per Dr. Giron ). Samples need to be sent for AFB/TB, fungus, and routine cultures 2. Await QuantiFERON TB gold assay 3. Glycemic control as per primary care 4. Await results of blood cultures which are NGTD Sunny Sanabria MD [facility] Office: [phone] Subjective Date of service: 05/14/16 Principal diagnosis: Possible vertebral discitis/osteomyelitis Interval history: "They are starving me here!" Still complains of back pain. Still having some subjective fever and chills. Objective - Exam Narrative Exam: GENERAL: Well-developed, well-nourished appearing male who is alert and in no acute distress. HEAD: Normocephalic. No lesions seen. EYES: Pupils are equal reactive to light and accommodation. There is no scleral icterus. Optic fundi are not examined. Left upper and lower eyelid and periorbital swelling with minimal redness. EARS: Tympanic membranes are normal. THROAT: Oropharynx is normal with no evidence of oral candidiasis or pharyngitis. Poor dentition with multiple missing teeth. No obvious dental infection. NECK: Supple. No enlargement of the thyroid gland. No significant cervical lymphadenopathy. No jugular venous distention at 30. LUNGS: Clear with no adventitious sounds. HEART: Regular rate. S1 and S2 are normal. There are no gallops, clicks or rubs heard. There is a grade III/ [place] heard best No diastolic murmur audible. ABDOMEN: Soft and nontender. Liver and spleen are not palpably enlarged or tender. No palpable masses. Bowel sounds are normoactive. EXTREMITIES: No peripheral lymphadenopathy, clubbing or edema. Status post left AKA & right BKA's with well-healed stumps and no signs of infection or ischemia. Status post amputation of the left index finger. Mild tenderness over lower back with no other object of abnormalities seen. SKIN: LUE AVF with good palpable thrill and audible bruit and no signs of infection. : Not examined NEUROLOGIC: No focal findings. - Constitutional Vitals: Vital Signs Temp Pulse Resp BP Pulse Ox 98.2 F 80 20 164/80 97 05/14/16 08:00 05/14/16 08:00 05/14/16 08:00 05/14/16 08:00 05/14/16 08:00 Temperature -Last 24 Hours Temperature 98.2 F Temperature 98.8 F Temperature 98.5 F Temperature 98.5 F Temperature 99.0 F - Labs CBC & Chem 7: 05/13/16 04:43 05/13/16 04:43 Labs: Abnormal lab results Microbiology 05/12/16 18:27 Peripheral/Venous Blood Culture - Preliminary NO GROWTH AFTER 24 HOURS 05/12/16 18:27 Peripheral/Venous Blood Culture - Preliminary NO GROWTH AFTER 24 HOURS Imagin05/12/16: CT lumbar spine: Prominent erosive changes at L2-L3 with less prominent erosive changes at L4-L5 with Schmorl's node formation seen in the superior endplate of L2 and inferior endplate of T11. Mild adjacent soft tissue density seen at L2- L3. MRI lumbar spine: Enhancement of the paraspinous musculature in the back as well as more anteriorly in the psoas musculature adjacent to L2-L3 without abscess seen. Likely changes of discitis and osteomyelitis within the L2-L3 disc and inferior endplate of L2 as well as L5-S1 disc and inferior endplate of L5.
[2016-05-14] MEDS ORDERED: NACL 0.9% 1000 ML 100 ML IV PRN (10:30)
[2016-05-14] MEDS ORDERED: VERSED IV ONE ×2 (11:58→12:12)
[2016-05-14] MEDS ORDERED: SUBLIMAZE ONE (11:58)
[2016-05-14] MEDS ORDERED: SUBLIMAZE IV ONE (12:12)
--- NOTE | 2016-05-14 13:58 | Cat Scan Report ---
EXAM: CT-GUIDED BIOPSY OF L2 VERTEBRAL BODY AND DISC INTERSPACE CLINICAL INDICATION: PATIENT WITH LYTIC DESTRUCTIVE CHANGES TO THE L2/3 DISC SPACE INVOLVING THE ANTERIOR ASPECT OF THE L2 VERTEBRAL BODY DATE: 05/14/2016 PROCEDURE: Following an explanation of the risks, benefits and alternatives; written informed consent was obtained. The patient was brought to the CT suite and placed in prone position on the examination table. Initial bioprocess engineer images of the lumbar spine were performed and an appropriate access site was chosen. Using intermittent CT guidance, a 17-gauge 11.9 cm trocar needle was advanced to the margin of the L2 vertebral body. The needle was advanced through the cortex into the lytic aspect of the vertebral body. Aspiration of the anterior aspect of L2 vertebral body was then performed. 2 core biopsies were also obtained. Samples were sent for AFB, fungal culture, and anaerobic culture and aerobic culture as well as cytology. The needle was removed and hemostasis achieved using manual compression. Post-biopsy imaging demonstrated no significant anatomic. The patient tolerated the procedure well. There were no immediate post procedure complications. Conscious sedation was performed under the guidance of radiologic nursing. Continuous cardiopulmonary monitoring was utilized. IMPRESSION: 1) CT-guided biopsy of L2 vertebral body with samples sent for AFB, fungal culture, aerobic and anaerobic culture as well as cytology.
[2016-05-14] MEDS: LOVENOX SUB-Q SCH (19:01)
--- NOTE | 2016-05-15 05:00 | Progress Note ---
Assessment and Plan - Patient Problems (1) Osteomyelitis of lumbar spine Current Visit: Yes Status: Acute Plan to address problem: ID consulted, continue current care, pending biopsy as per IR. (2) ESRD (end stage renal disease) on dialysis Current Visit: Yes Status: Chronic Plan to address problem: Nephrology consulted, dialysis as per nephrology service. (3) Acute on chronic renal failure Current Visit: No Status: Acute Plan to address problem: continue current care, dialysis as per nephrology, (4) Diabetes mellitus type 2 in nonobese Current Visit: No Status: Acute Plan to address problem: ADA diet, insulin, accu check (5) Hypertension Current Visit: No Status: Chronic Plan to address problem: monitor bp q shift, (6) DVT prophylaxis Current Visit: No Status: Acute History Interval history: Pt lying in bed, eating lunch, Pt denies CP, fever, Palpitation, NVD, or pain. Pt daughter at bedside. Discussed care plan with patient and daughter. No reported nursing events. Hospitalist Physical - Constitutional Vitals: Temp Pulse Resp BP Pulse Ox 98.3 F 85 18 162/74 97 05/14/16 23:08 05/14/16 23:08 05/14/16 23:08 05/14/16 23:08 05/14/16 23:08 General appearance: Present: no acute distress - EENT Eyes: Present: PERRL, EOM intact ENT: hearing intact - Neck Neck: Present: supple - Respiratory Respiratory: bilateral: CTA - Cardiovascular Rhythm: regular Heart Sounds: Present: S1 & S2 - Extremities Extremity abnormal: edema Peripheral Pulses: within normal limits - Abdominal General gastrointestinal: soft, non-tender, non-distended - Integumentary Integumentary: Present: clear, dry - Psychiatric Psychiatric: appropriate mood/affect, cooperative Results - Labs CBC & Chem 7: 05/13/16 04:43 05/13/16 04:43 Labs: Laboratory Last Values WBC 8.8 K/mm3 (4.5-11.0) 05/13/16 04:43 RBC 3.47 M/mm3 (3.65-5.03) L 05/13/16 04:43 Hgb 9.8 gm/dl (11.8-15.2) L 05/13/16 04:43 Hct 30.5 % (35.5-45.6) L 05/13/16 04:43 MCV 88 fl (84-94) 05/13/16 04:43 MCH 28 pg (28-32) 05/13/16 04:43 MCHC 32 % (32-34) 05/13/16 04:43 RDW 18.6 % (13.2-15.2) H 05/13/16 04:43 Plt Count 290 K/mm3 (140-440) 05/13/16 04:43 Lymph % (Auto) 12.1 % (13.4-35.0) L 05/13/16 04:43 [place] % (Auto) 9.4 % (0.0-7.3) H 05/13/16 04:43 Eos % (Auto) 3.8 % (0.0-4.3) 05/13/16 04:43 Baso % (Auto) 0.5 % (0.0-1.8) 05/13/16 04:43 Lymph # 1.1 K/mm3 (1.2-5.4) L 05/13/16 04:43 [place] # 0.8 K/mm3 (0.0-0.8) 05/13/16 04:43 Eos # 0.3 K/mm3 (0.0-0.4) 05/13/16 04:43 Baso # 0.0 K/mm3 (0.0-0.1) 05/13/16 04:43 Seg Neutrophils % 74.2 % (40.0-70.0) H 05/13/16 04:43 Seg Neutrophils # 6.5 K/mm3 (1.8-7.7) 05/13/16 04:43 ESR 43 mm/Hr (0-20) 05/12/16 18:27 Sodium 145 mmol/L (137-145) 05/13/16 04:43 Potassium 3.1 mmol/L (3.6-5.0) L 05/13/16 04:43 Chloride 100.4 mmol/L (98-107) 05/13/16 04:43 Carbon Dioxide 32 mmol/L (22-30) H 05/13/16 04:43 Anion Gap 16 mmol/L 05/13/16 04:43 BUN 24 mg/dL (9-20) H 05/13/16 04:43 Creatinine 3.7 mg/dL (0.8-1.5) H 05/13/16 04:43 Estimated GFR 20 ml/min 05/13/16 04:43 BUN/Creatinine Ratio 6.48 % 05/13/16 04:43 Glucose 122 mg/dL (75-100) H 05/13/16 04:43 POC Glucose 101 (70-105) 05/14/16 21:40 Calcium 8.2 mg/dL (8.4-10.2) L 05/13/16 04:43 C-Reactive Protein 3.80 mg/dL (0.00-1.30) H 05/12/16 18:27
[2016-05-15] MEDS: NOVOLOG SUB-Q SCH ×4 (07:43→21:38)
--- NOTE | 2016-05-15 07:53 | Progress Note ---
Assessment and Plan Assessment and plan: (1) Osteomyelitis of lumbar spine ID consult appreciated, continue current care, pending biopsy as per IR. Off the ABCs, per Dr Giron. (2) ESRD (end stage renal disease) on dialysis Nephrology consulted, dialysis as per nephrology service. (3) Acute on chronic renal failure continue current care, dialysis as per nephrology, (4) Diabetes mellitus type 2 in nonobese - ADA diet, insulin, accu check - Controlled (5) Hypertension - monitor bp q shift, (6) DVT prophylaxis - On lovenox History Interval history: patient still complains lower lumbar back pain. Hospitalist Physical - Physical exam Narrative exam: Not in cardiopulmonary distress. The patient appeared well nourished and normally developed. Vital signs as documented. Head exam is unremarkable. No scleral icterus . Neck is without jugular venous distension, thyromegaly, or carotid bruits. Lungs are clear to auscultation. Cardiac exam reveals regular rate and Rhythm. First and second heart sounds normal. No murmurs, rubs or gallops. Abdominal exam reveals normal bowel sounds, no masses, no organomegaly and no aortic enlargement. Extremities right BKA, left AKA. SENIOR MATERIALS SCIENTIST: Alert and oriented 3. No focal weakness. - Constitutional Vitals: Temp Pulse Resp BP Pulse Ox 98.3 F 85 18 162/74 97 05/14/16 23:08 05/14/16 23:08 05/14/16 23:08 05/14/16 23:08 05/14/16 23:08 General appearance: Present: no acute distress Results - Labs CBC & Chem 7: 05/13/16 04:43 05/15/16 16:38 Labs: Laboratory Last Values WBC 8.8 K/mm3 (4.5-11.0) 05/13/16 04:43 RBC 3.47 M/mm3 (3.65-5.03) L 05/13/16 04:43 Hgb 9.8 gm/dl (11.8-15.2) L 05/13/16 04:43 Hct 30.5 % (35.5-45.6) L 05/13/16 04:43 MCV 88 fl (84-94) 05/13/16 04:43 MCH 28 pg (28-32) 05/13/16 04:43 MCHC 32 % (32-34) 05/13/16 04:43 RDW 18.6 % (13.2-15.2) H 05/13/16 04:43 Plt Count 290 K/mm3 (140-440) 05/13/16 04:43 Lymph % (Auto) 12.1 % (13.4-35.0) L 05/13/16 04:43 [place] % (Auto) 9.4 % (0.0-7.3) H 05/13/16 04:43 Eos % (Auto) 3.8 % (0.0-4.3) 05/13/16 04:43 Baso % (Auto) 0.5 % (0.0-1.8) 05/13/16 04:43 Lymph # 1.1 K/mm3 (1.2-5.4) L 05/13/16 04:43 [place] # 0.8 K/mm3 (0.0-0.8) 05/13/16 04:43 Eos # 0.3 K/mm3 (0.0-0.4) 05/13/16 04:43 Baso # 0.0 K/mm3 (0.0-0.1) 05/13/16 04:43 Seg Neutrophils % 74.2 % (40.0-70.0) H 05/13/16 04:43 Seg Neutrophils # 6.5 K/mm3 (1.8-7.7) 05/13/16 04:43 ESR 43 mm/Hr (0-20) 05/12/16 18:27 Sodium 145 mmol/L (137-145) 05/13/16 04:43 Potassium 3.1 mmol/L (3.6-5.0) L 05/13/16 04:43 Chloride 100.4 mmol/L (98-107) 05/13/16 04:43 Carbon Dioxide 32 mmol/L (22-30) H 05/13/16 04:43 Anion Gap 16 mmol/L 05/13/16 04:43 BUN 24 mg/dL (9-20) H 05/13/16 04:43 Creatinine 3.7 mg/dL (0.8-1.5) H 05/13/16 04:43 Estimated GFR 20 ml/min 05/13/16 04:43 BUN/Creatinine Ratio 6.48 % 05/13/16 04:43 Glucose 122 mg/dL (75-100) H 05/13/16 04:43 POC Glucose 72 (70-105) 05/15/16 06:00 Calcium 8.2 mg/dL (8.4-10.2) L 05/13/16 04:43 C-Reactive Protein 3.80 mg/dL (0.00-1.30) H 05/12/16 18:27
--- NOTE | 2016-05-15 08:28 | Progress Note ---
Assessment and Plan Impression: * End stage renal disease on hemodiaysis * Erosive changes L2-3, L5-S1 * Peripheral artery disease * Hypertension * Type II DM * Anemia secondary to ESRD * Secondary hyperparathyroidism Plan: * Hemodialysis today (day 3) - patient is s/p gadolinium exposure * Await results of bone bx * Continue antiHTN medications * Epogen for goal Hb 10-12 * Renal diet Subjective Date of service: 05/15/16 Principal diagnosis: Possible vertebral discitis/osteomyelitis Interval history: No acute events overnight. Objective - Vital Signs Vital signs: Vital Signs - 12hr 05/14/16 05/14/16 05/15/16 22:00 23:08 06:50 Temperature 98.3 F 98.9 F Pulse Rate [ 85 89 Right Radial] Respiratory 18 20 Rate Respiratory 18 Rate [Bilateral Shoulder] Respiratory 18 Rate [ Generalized] Respiratory 18 Rate [Head] Blood Pressure 162/74 185/93 [Right Arm] O2 Sat by Pulse 97 97 Oximetry - General Appearance General appearance: well-developed, well-nourished EENT: ATNC Respiratory: Present: Clear to Ascultation Cardiology: regular, S1S2 Gastrointestinal: normal, no tenderness, no distended Integumentary: no rash Neurologic: no focal deficit Musculoskeletal: other (bilateral amputee) Psychiatric: mood/affect appropriate - Lab 05/17/16 04:22 05/17/16 04:22 Most recent lab results Calcium 8.2 mg/dL (8.4-10.2) L 05/13/16 04:43
[2016-05-15] MEDS ORDERED: NACL 0.9% 1000 ML 100 ML IV PRN (08:29)
[2016-05-15] MEDS ORDERED: NON-FORMULARY (Cinacalcet Hcl [Sensipar] 90 MG) PO SCH (10:00)
--- NOTE | 2016-05-15 12:21 | Progress Note ---
Assessment and Plan Current antibiotics: None Previous antibiotics: Zosyn 2.25 g IV q8h 05/13 Cefepime 2 g IV 05/12 Vancomycin IV (05/12-05/13) ASSESSMENT: Bill Singh is a 71y/o male with HTN, ESRD on maintenance HD via a left AVF, PVD s/p left AKA & right BKA, bioprosthetic AVR (2009?), DM-2, peripheral neuropathy, anemia, HLD, and recent hospitalization 04/06 for sharla esophagitis who was admitted to [facility] on 05/12/16 status post a fall with right periorbital contusion/ hematoma. Following the fall he complained of low back pain and CT and MRI raises questions regarding possible lumbar spine discitis/ osteomyelitis. Problem list: 1. R/O lumbar discitis/osteomyelitis - CT scan with erosive changes L2-3 and vertebral bodies with adjacent soft tissue swelling, erosive changes at L5 - MRI with contrast - enhanced paraspinous musculature at L2-3, R/O discitis/ osteomyelitis at L2-3 and inferior endplate of L5, chronic changes with stenosis L2-3, L4-5 -Status post biopsy by IR 05/14 2. Left periorbital contusion/hematoma status post fall - No obvious secondary infection 3. ESRD/HD 4. Status post bioprosthetic aortic valve replacement( ? 2009 [place]) 5. PVD - s/p left AKA, right BKA 6. DM2 7. HTN, anemia, HLD PLAN: 1. Await from results from yesterday's biopsy 2. Appropriate antibiotics to be dictated by cultures 3. Await QuantiFERON TB gold assay 4. Glycemic control as per primary care 5. Await finalization of blood cultures which are NGTD Sunny Sanabria MD [facility] Office: [phone] Subjective Date of service: 05/15/16 Principal diagnosis: Possible vertebral discitis/osteomyelitis Interval history: Seen and HD. Sleeping but easily aroused. Still with back pain. ROS: No subjective fever or chills. No nausea, vomiting or diarrhea. No shortness of breath, cough or pleuritic chest pain Objective - Exam Narrative Exam: GENERAL: Well-developed, well-nourished appearing male who is alert and in no acute distress. Currently on HD. HEAD: Normocephalic. No lesions seen. EYES: Pupils are equal reactive to light and accommodation. There is no scleral icterus. Optic fundi are not examined. Left upper and lower eyelid and periorbital swelling with minimal redness. EARS: Tympanic membranes are normal. THROAT: Oropharynx is normal with no evidence of oral candidiasis or pharyngitis. Poor dentition with multiple missing teeth. No obvious dental infection. NECK: Supple. No enlargement of the thyroid gland. No significant cervical lymphadenopathy. No jugular venous distention at 30. LUNGS: Clear with no adventitious sounds. HEART: Regular rate. S1 and S2 are normal. There are no gallops, clicks or rubs heard. There is a grade III/ STERLING heard best No diastolic murmur audible. ABDOMEN: Soft and nontender. Liver and spleen are not palpably enlarged or tender. No palpable masses. Bowel sounds are normoactive. EXTREMITIES: No peripheral lymphadenopathy, clubbing or edema. Status post left AKA & right BKA's with well-healed stumps and no signs of infection or ischemia. Status post amputation of the left index finger. Mild tenderness over lower back with no other object of abnormalities seen. SKIN: LUE AVF with good palpable thrill and audible bruit and no signs of infection. : Not examined NEUROLOGIC: No focal findings. - Constitutional Vitals: Vital Signs Temp Pulse Resp BP Pulse Ox 98.9 F 80 18 158/80 97 05/15/16 10:20 05/15/16 11:45 05/15/16 10:20 05/15/16 11:45 05/15/16 06:50 Temperature -Last 24 Hours Temperature 98.9 F Temperature 98.9 F Temperature 98.3 F Temperature 98.1 F Temperature 98.1 F Temperature 98.2 F - Labs CBC & Chem 7: 05/13/16 04:43 05/13/16 04:43 Labs: Abnormal lab results Microbiology: 05/14: Spine aspirate: Gram stain with rare PMN and no organisms seen. Culture pending. Path: No significant abnormalities seen 05/12/16 18:27 Peripheral/Venous Blood Culture - Preliminary NO GROWTH AFTER 24 HOURS 05/12/16 18:27 Peripheral/Venous Blood Culture - Preliminary NO GROWTH AFTER 24 HOURS Imagin05/12/16: CT lumbar spine: Prominent erosive changes at L2-L3 with less prominent erosive changes at L4-L5 with Schmorl's node formation seen in the superior endplate of L2 and inferior endplate of T11. Mild adjacent soft tissue density seen at L2- L3. MRI lumbar spine: Enhancement of the paraspinous musculature in the back as well as more anteriorly in the psoas musculature adjacent to L2-L3 without abscess seen. Likely changes of discitis and osteomyelitis within the L2-L3 disc and inferior endplate of L2 as well as L5-S1 disc and inferior endplate of L5.
[2016-05-15] MEDS: BABY ASPIRIN PO SCH (16:04)
[2016-05-15] MEDS: NORVASC PO SCH (16:04)
[2016-05-15] MEDS: SENSIPAR PO SCH (16:04)
[2016-05-15] MEDS: COZAAR PO SCH (16:05)
[2016-05-15] MEDS: COREG PO SCH ×2 (16:05→21:36)
[2016-05-15] MEDS: APRESOLINE PO SCH ×3 (16:05→21:36)
[2016-05-15] MEDS: ZOLOFT PO SCH (16:05)
[2016-05-15 17:43] LABS: Blood Urea Nitrogen 6 mg/dL (9-20); Calcium 8.6 mg/dL (8.4-10.2); Carbon Dioxide 30 mmol/L (22-30); Chloride 101.7 mmol/L (98-107); Glucose 85 mg/dL (75-100); Potassium 3.6 mmol/L (3.6-5.0); Sodium 142 mmol/L (137-145)
[2016-05-15] MEDS: LOVENOX SUB-Q SCH (17:44)
[2016-05-15 17:46] LABS: Anion Gap 14 mmol/L
[2016-05-15] MEDS: MORPHINE IV PRN ×2 (18:03→23:58)
[2016-05-16] MEDS: APRESOLINE PO SCH ×3 (05:55→23:21)
--- NOTE | 2016-05-16 07:46 | Progress Note ---
Assessment and Plan Assessment and plan: (1) Osteomyelitis of lumbar spine - ID consult appreciated - continue current care, pending bone biopsy result . - Off the ABCs, per Dr Giron. (2) ESRD (end stage renal disease) on dialysis - Nephrology consulted - dialysis as per nephrology service. (3) Anemia of chronic illness - Epogen nephrology (4) Diabetes mellitus type - ADA diet, insulin, accu check - Controlled (5) Hypertension - Controlled - Continue current medications (6) DVT prophylaxis - On lovenox History Interval history: patient still complains lower lumbar back pain. Hospitalist Physical - Physical exam Narrative exam: Not in cardiopulmonary distress. The patient appeared well nourished and normally developed. Vital signs as documented. Head exam is unremarkable. No scleral icterus . Neck is without jugular venous distension, thyromegaly, or carotid bruits. Lungs are clear to auscultation. Cardiac exam reveals regular rate and Rhythm. First and second heart sounds normal. No murmurs, rubs or gallops. Abdominal exam reveals normal bowel sounds, no masses, no organomegaly and no aortic enlargement. Extremities right BKA, left AKA. DENSITY CONTROL PUNCHER: Alert and oriented 3. No focal weakness. - Constitutional Vitals: Temp Pulse Resp BP Pulse Ox 98.6 F 96 H 20 131/63 98 05/16/16 00:00 05/16/16 00:00 05/16/16 04:17 05/16/16 00:00 05/15/16 20:00 General appearance: Present: no acute distress Results - Labs CBC & Chem 7: 05/13/16 04:43 05/15/16 16:38 Labs: Laboratory Last Values WBC 8.8 K/mm3 (4.5-11.0) 05/13/16 04:43 RBC 3.47 M/mm3 (3.65-5.03) L 05/13/16 04:43 Hgb 9.8 gm/dl (11.8-15.2) L 05/13/16 04:43 Hct 30.5 % (35.5-45.6) L 05/13/16 04:43 MCV 88 fl (84-94) 05/13/16 04:43 MCH 28 pg (28-32) 05/13/16 04:43 MCHC 32 % (32-34) 05/13/16 04:43 RDW 18.6 % (13.2-15.2) H 05/13/16 04:43 Plt Count 290 K/mm3 (140-440) 05/13/16 04:43 Lymph % (Auto) 12.1 % (13.4-35.0) L 05/13/16 04:43 [place] % (Auto) 9.4 % (0.0-7.3) H 05/13/16 04:43 Eos % (Auto) 3.8 % (0.0-4.3) 05/13/16 04:43 Baso % (Auto) 0.5 % (0.0-1.8) 05/13/16 04:43 Lymph # 1.1 K/mm3 (1.2-5.4) L 05/13/16 04:43 [place] # 0.8 K/mm3 (0.0-0.8) 05/13/16 04:43 Eos # 0.3 K/mm3 (0.0-0.4) 05/13/16 04:43 Baso # 0.0 K/mm3 (0.0-0.1) 05/13/16 04:43 Seg Neutrophils % 74.2 % (40.0-70.0) H 05/13/16 04:43 Seg Neutrophils # 6.5 K/mm3 (1.8-7.7) 05/13/16 04:43 ESR 43 mm/Hr (0-20) 05/12/16 18:27 Sodium 142 mmol/L (137-145) 05/15/16 16:38 Potassium 3.6 mmol/L (3.6-5.0) 05/15/16 16:38 Chloride 101.7 mmol/L (98-107) 05/15/16 16:38 Carbon Dioxide 30 mmol/L (22-30) 05/15/16 16:38 Anion Gap 14 mmol/L 05/15/16 16:38 BUN 6 mg/dL (9-20) L 05/15/16 16:38 Creatinine 1.2 mg/dL (0.8-1.5) D 05/15/16 16:38 Estimated GFR > 60 ml/min 05/15/16 16:38 BUN/Creatinine Ratio 5.00 % 05/15/16 16:38 Glucose 85 mg/dL (75-100) 05/15/16 16:38 POC Glucose 95 (70-105) 05/16/16 06:17 Calcium 8.6 mg/dL (8.4-10.2) 05/15/16 16:38 C-Reactive Protein 3.80 mg/dL (0.00-1.30) H 05/12/16 18:27
[2016-05-16] MEDS: NOVOLOG SUB-Q SCH ×4 (08:00→22:00)
[2016-05-16] MEDS ORDERED: ANCEF/STERILE WATER 2 GM/20 ML IV NR (08:00)
[2016-05-16] MEDS: MORPHINE IV PRN ×2 (09:00→17:00)
--- NOTE | 2016-05-16 10:05 | Progress Note ---
Assessment and Plan Current antibiotics: None Previous antibiotics: Zosyn 2.25 g IV q8h 05/13 Cefepime 2 g IV 05/12 Vancomycin IV (05/12-05/13) ASSESSMENT: Bill Singh is a 71y/o male with HTN, ESRD on maintenance HD via a left AVF, PVD s/p left AKA & right BKA, bioprosthetic AVR (2009?), DM-2, peripheral neuropathy, anemia, HLD, and recent hospitalization 04/06 for sharla esophagitis who was admitted to [facility] on 05/12/16 status post a fall with right periorbital contusion/ hematoma. Following the fall he complained of low back pain and CT and MRI raises questions regarding possible lumbar spine discitis/ osteomyelitis. Problem list: 1. R/O lumbar discitis/osteomyelitis - CT scan with erosive changes L2-3 and vertebral bodies with adjacent soft tissue swelling, erosive changes at L5 - MRI with contrast - enhanced paraspinous musculature at L2-3, R/O discitis/ osteomyelitis at L2-3 and inferior endplate of L5, chronic changes with stenosis L2-3, L4-5 -Status post biopsy by IR 05/14 with pathology not showing any abnormalities -Still worry about neoplastic process 2. Left periorbital contusion/hematoma status post fall - No obvious secondary infection 3. ESRD/HD 4. Status post bioprosthetic aortic valve replacement( ? 2009 [place]) 5. PVD - s/p left AKA, right BKA 6. DM2 7. HTN, anemia, HLD PLAN: 1. Await further culture results yesterday's biopsy 2. Appropriate antibiotics to be dictated by cultures 3. Await QuantiFERON TB gold assay 4. Glycemic control as per primary care 5. Await finalization of blood cultures which are NGTD 6. If cultures remain sterile ? consider rebiopsy to rule out cancer Discussed with pt's family Sunny Sanabria MD [facility] Office: [phone] Subjective Date of service: 05/16/16 Principal diagnosis: Possible vertebral discitis/osteomyelitis Interval history: Back pain somewhat better. Poor appetite although asking for "apple or peach cobbler." No new complaints. ROS: No subjective fever or chills. No nausea, vomiting or diarrhea. No shortness of breath, cough or pleuritic chest pain Objective - Exam Narrative Exam: GENERAL: Well-developed, well-nourished appearing male who is alert and in no acute distress. HEAD: Normocephalic. No lesions seen. EYES: Pupils are equal reactive to light and accommodation. There is no scleral icterus. Optic fundi are not examined. Left upper and lower eyelid and periorbital swelling with minimal redness. EARS: Tympanic membranes are normal. THROAT: Oropharynx is normal with no evidence of oral candidiasis or pharyngitis. Poor dentition with multiple missing teeth. No obvious dental infection. NECK: Supple. No enlargement of the thyroid gland. No significant cervical lymphadenopathy. No jugular venous distention at 30. LUNGS: Clear with no adventitious sounds. CHEST: Well healed sternotomy scar with no signs of infection. The sternum is stable. HEART: Regular rate. S1 and S2 are normal. There are no gallops, clicks or rubs heard. There is a grade III/ STERL[place] heard best No diastolic murmur audible. ABDOMEN: Soft and nontender. Liver and spleen are not palpably enlarged or tender. No palpable masses. Bowel sounds are normoactive. EXTREMITIES: No peripheral lymphadenopathy, clubbing or edema. Status post left AKA & right BKA's with well-healed stumps and no signs of infection or ischemia. Status post amputation of the left index finger. Mild tenderness over lower back with no other object of abnormalities seen. SKIN: LUE AVF with good palpable thrill and audible bruit and no signs of infection. : Not examined NEUROLOGIC: No focal findings. - Constitutional Vitals: Vital Signs Temp Pulse Resp BP Pulse Ox 98.1 F 98 H 16 154/71 100 05/16/16 07:35 05/16/16 07:35 05/16/16 07:35 05/16/16 07:35 05/16/16 07:35 Temperature -Last 24 Hours Temperature 98.1 F Temperature 98.6 F Temperature 99.0 F Temperature 97.8 F Temperature 97.4 F Temperature 98.9 F - Labs CBC & Chem 7: 05/13/16 04:43 05/15/16 16:38 Labs: Abnormal lab results Microbiology 05/14/16 Unknown Back Surgical Culture - Preliminary 05/14/16 Unknown Back Anaerobic Culture - Preliminary 05/12/16 18:27 Peripheral/Venous Blood Culture - Preliminary NO GROWTH AFTER 72 HOURS 05/12/16 18:27 Peripheral/Venous Blood Culture - Preliminary NO GROWTH AFTER 72 HOURS 05/14 Path: No abnormalities seen 05/12/16: CT lumbar spine: Prominent erosive changes at L2-L3 with less prominent erosive changes at L4-L5 with Schmorl's node formation seen in the superior endplate of L2 and inferior endplate of T11. Mild adjacent soft tissue density seen at L2- L3. MRI lumbar spine: Enhancement of the paraspinous musculature in the back as well as more anteriorly in the psoas musculature adjacent to L2-L3 without abscess seen. Likely changes of discitis and osteomyelitis within the L2-L3 disc and inferior endplate of L2 as well as L5-S1 disc and inferior endplate of L5.
[2016-05-16] MEDS: LOVENOX SUB-Q SCH (10:21)
[2016-05-16] MEDS: COREG PO SCH ×2 (10:22→23:21)
[2016-05-16] MEDS: COZAAR PO SCH (10:22)
[2016-05-16] MEDS: SENSIPAR PO SCH (10:22)
[2016-05-16] MEDS: NORVASC PO SCH (10:23)
[2016-05-16] MEDS: BABY ASPIRIN PO SCH (10:23)
[2016-05-16] MEDS: ZOLOFT PO SCH (10:23)
[2016-05-16] MEDS: ZOFRAN IV PRN (17:00)
[2016-05-17 04:51] LABS: Hematocrit 31.6 % (35.5-45.6)
[2016-05-17 04:56] LABS: BUN/Creatinine Ratio 5.71; Calcium 8.6 mg/dL (8.4-10.2); Chloride 97.7 mmol/L (98-107); Potassium 4.5 mmol/L (3.6-5.0)
[2016-05-17] MEDS: APRESOLINE PO SCH ×2 (05:38→13:32)
--- NOTE | 2016-05-17 09:58 | Progress Note ---
Assessment and Plan Current antibiotics: None Previous antibiotics: Zosyn 2.25 g IV q8h 05/13 Cefepime 2 g IV 05/12 Vancomycin IV (05/12-05/13) ASSESSMENT: Bill Singh is a 71y/o male with HTN, ESRD on maintenance HD via a left AVF, PVD s/p left AKA & right BKA, bioprosthetic AVR (2009?), DM-2, peripheral neuropathy, anemia, HLD, and recent hospitalization 04/06 for sharla esophagitis who was admitted to [facility] on 05/12/16 status post a fall with right periorbital contusion/ hematoma. Following the fall he complained of low back pain and CT and MRI raises questions regarding possible lumbar spine discitis/ osteomyelitis. Problem list: 1. R/O lumbar discitis/osteomyelitis - CT scan with erosive changes L2-3 and vertebral bodies with adjacent soft tissue swelling, erosive changes at L5 - MRI with contrast - enhanced paraspinous musculature at L2-3, R/O discitis/ osteomyelitis at L2-3 and inferior endplate of L5, chronic changes with stenosis L2-3, L4-5 -Status post biopsy by IR 05/14 with pathology not showing any abnormalities -Still worry about neoplastic process 2. Left periorbital contusion/hematoma status post fall - No obvious secondary infection 3. ESRD/HD 4. Status post bioprosthetic aortic valve replacement( ? 2009 [place]) 5. PVD - s/p left AKA, right BKA 6. DM2 7. HTN, anemia, HLD PLAN: 1. Await finalization of cultures from 05/15 biopsy 2. Appropriate antibiotics to be dictated by cultures 3. Await QuantiFERON TB gold assay 4. Glycemic control as per primary care 5. Await finalization of blood cultures which are NGTD 6. If cultures remain sterile may need to consider rebiopsy to rule out cancer Discussed with pt's family Sunny Sanabria MD [facility] Office: [phone] Subjective Date of service: 05/17/16 Principal diagnosis: Possible vertebral discitis/osteomyelitis Interval history: Back pain somewhat better. Poor appetite although asking for "apple or peach cobbler." No new complaints. ROS: No subjective fever or chills. No nausea, vomiting or diarrhea. No shortness of breath, cough or pleuritic chest pain Objective - Exam Narrative Exam: GENERAL: Well-developed, well-nourished appearing male who is alert and in no acute distress. HEAD: Normocephalic. No lesions seen. EYES: Pupils are equal reactive to light and accommodation. There is no scleral icterus. Optic fundi are not examined. Left upper and lower eyelid and periorbital swelling with minimal redness. EARS: Tympanic membranes are normal. THROAT: Oropharynx is normal with no evidence of oral candidiasis or pharyngitis. Poor dentition with multiple missing teeth. No obvious dental infection. NECK: Supple. No enlargement of the thyroid gland. No significant cervical lymphadenopathy. No jugular venous distention at 30. LUNGS: Clear with no adventitious sounds. CHEST: Well healed sternotomy scar with no signs of infection. The sternum is stable. HEART: Regular rate. S1 and S2 are normal. There are no gallops, clicks or rubs heard. There is a grade III/ STERLING heard best No diastolic murmur audible. ABDOMEN: Soft and nontender. Liver and spleen are not palpably enlarged or tender. No palpable masses. Bowel sounds are normoactive. EXTREMITIES: No peripheral lymphadenopathy, clubbing or edema. Status post left AKA & right BKA's with well-healed stumps and no signs of infection or ischemia. Status post amputation of the left index finger. Mild tenderness over lower back with no other object of abnormalities seen. SKIN: LUE AVF with good palpable thrill and audible bruit and no signs of infection. : Not examined NEUROLOGIC: No focal findings. - Constitutional Vitals: Vital Signs Temp Pulse Resp BP Pulse Ox 98.1 F 78 18 138/70 97 05/17/16 08:00 05/17/16 08:00 05/17/16 08:00 05/17/16 08:00 05/17/16 08:00 Temperature -Last 24 Hours Temperature 98.1 F Temperature 98.3 F Temperature 97.8 F - Labs CBC & Chem 7: 05/17/16 04:22 05/17/16 04:22 Labs: Abnormal lab results Microbiology 05/12/16 18:27 Peripheral/Venous Blood Culture - Preliminary NO GROWTH AFTER 4 DAYS 05/12/16 18:27 Peripheral/Venous Blood Culture - Preliminary NO GROWTH AFTER 4 DAYS 05/14/16 Unknown Back Surgical Culture - NGTD. Gram stain with rare PMN and NOS 05/14/16 Unknown Back Anaerobic Culture - NGTD 05/14: Path: No abnormalities seen
[2016-05-17] MEDS: NOVOLOG SUB-Q SCH ×3 (10:26→19:26)
[2016-05-17] MEDS: SENSIPAR PO SCH (10:27)
[2016-05-17] MEDS: COZAAR PO SCH (10:27)
[2016-05-17] MEDS: LOVENOX SUB-Q SCH (10:28)
[2016-05-17] MEDS: COREG PO SCH (10:29)
[2016-05-17] MEDS: NORVASC PO SCH (10:29)
[2016-05-17] MEDS: ZOLOFT PO SCH (10:29)
[2016-05-17] MEDS: BABY ASPIRIN PO SCH (10:29)
--- NOTE | 2016-05-17 11:51 | Discharge Summary ---
Providers - Providers Date of Admission: 05/12/16 23:08 Date of discharge: 05/17/16 Attending physician: TAMMY NIELSEN MD Primary care physician: KELLEN MCELROY Hospitalization Reason for admission: lower back pain Condition: Stable Pertinent studies: Bone biopsy Hospital course: Patient was admitted for lower back pain after he fell. There was a suspicion of osteomyelitis/ malignancy and biopsy was done and it turned to be negative. Currently the back pain subsided and ready to be discharged back to [facility]. He may need follow up with orthopedics if the pain persisted for rebiopsy. Disposition: DC/TX SNF [facility] Time spent for discharge: 32 minutes - Discharge Diagnoses (1) Discitis of thoracolumbar region Status: Acute (2) ESRD (end stage renal disease) on dialysis Status: Chronic (3) CAD (coronary artery disease) Status: Chronic (4) Coronary artery disease, non-occlusive Status: Chronic (5) S/P aortic valve replacement with bioprosthetic valve Status: Chronic Core Measure Documentation - Palliative Care Palliative Care/ Comfort Measures: Not Applicable - Core Measures Any of the following diagnoses?: none Exam - Physical Exam Narrative exam: Not in cardiopulmonary distress. The patient appeared well nourished and normally developed. Vital signs as documented. Head exam is unremarkable. No scleral icterus . Neck is without jugular venous distension, thyromegaly, or carotid bruits. Lungs are clear to auscultation. Cardiac exam reveals regular rate and Rhythm. First and second heart sounds normal. No murmurs, rubs or gallops. Abdominal exam reveals normal bowel sounds, no masses, no organomegaly and no aortic enlargement. Extremities right BKA, left AKA. LETTER CARRIER: Alert and oriented 3. No focal weakness. - Constitutional Vitals: Temp Pulse Resp BP Pulse Ox 98.1 F 97 H 18 138/70 97 05/17/16 08:00 05/17/16 10:27 05/17/16 08:00 05/17/16 10:27 05/17/16 08:00 Plan Activity: advance as tolerated Weight Bearing Status: Non-Weight Bearing Diet: low cholesterol, low salt, diabetic, renal Follow up with: KELLEN MCELROY MD [Primary Care Provider] - 7 Days ISHAAN BLAKE MD [Staff Physician] - 10 Days (Patient was admitted for lower back pain and biopsy done her was negative. patient may need to rebiopsy if the pain persisted.) Prescriptions: HYDROcodone/APAP 5-325 [Mulberry 5-325 mg TAB] 1 each PO Q8H PRN #12 tablet PRN Reason: Pain, Moderate (4-6)
[2016-05-17 15:29] VITALS: BP 132/68
--- NOTE | 2016-05-17 18:14 | Progress Note ---
Assessment and Plan Impression: * End stage renal disease on hemodiaysis * Erosive changes L2-3, L5-S1 * Peripheral artery disease * Hypertension * Type II DM * Anemia secondary to ESRD * Secondary hyperparathyroidism Plan: * Hemodialysis is s/p hemodialysis on Sat/Sat/ following gadolinium exposure * Will resume MWF schedule on Saturday * Await results of bone bx * Pain management per primary team * Abx per ID * Continue antiHTN medications * Epogen for goal Hb 10-12 * Renal diet Subjective Date of service: 05/16/16 Principal diagnosis: Possible vertebral discitis/osteomyelitis Interval history: Patient c/o back pain s/p procedure. Objective - Vital Signs Vital signs: Vital Signs - 12hr 05/17/16 05/17/16 05/17/16 08:00 10:27 15:28 Temperature 98.1 F 97.8 F Pulse Rate 97 H Pulse Rate [ 78 74 Apical] Respiratory 18 16 Rate Blood Pressure 138/70 Blood Pressure 138/70 132/68 [Right Arm] O2 Sat by Pulse 97 Oximetry - General Appearance General appearance: well-developed, frail EENT: ATNC Respiratory: Present: Clear to Ascultation Cardiology: regular, S1S2 Gastrointestinal: normal Integumentary: no rash Neurologic: no focal deficit Musculoskeletal: other (no JEREMY) Psychiatric: cooperative - Lab 05/17/16 04:22 05/17/16 04:22 Most recent lab results Calcium 8.6 mg/dL (8.4-10.2) 05/17/16 04:22
--- NOTE | 2016-05-17 18:17 | Progress Note ---
Assessment and Plan Impression: * End stage renal disease on hemodiaysis * Erosive changes L2-3, L5-S1 * Peripheral artery disease * Hypertension * Type II DM * Anemia secondary to ESRD * Secondary hyperparathyroidism Plan: * Patient is s/p daily HD x 3 following gadolinium exposure * Resume MWF schedule tomorrow * Abx per ID * Continue antiHTN medications * Epogen for goal Hb 10-12 * Renal diet Subjective Date of service: 05/17/16 Principal diagnosis: Possible vertebral discitis/osteomyelitis Interval history: Patient has no complaints; denies SOB. Objective - Vital Signs Vital signs: Vital Signs - 12hr 05/17/16 05/17/16 05/17/16 08:00 10:27 15:28 Temperature 98.1 F 97.8 F Pulse Rate 97 H Pulse Rate [ 78 74 Apical] Respiratory 18 16 Rate Blood Pressure 138/70 Blood Pressure 138/70 132/68 [Right Arm] O2 Sat by Pulse 97 Oximetry - General Appearance General appearance: well-developed, frail EENT: ATNC Respiratory: Present: Clear to Ascultation Cardiology: regular, S1S2 Gastrointestinal: normal, no tenderness, no distended Integumentary: no rash Musculoskeletal: other (no JEREMY) Psychiatric: cooperative - Lab 05/17/16 04:22 05/17/16 04:22 Most recent lab results Calcium 8.6 mg/dL (8.4-10.2) 05/17/16 04:22
[2016-05-17] MEDS ORDERED: NACL 0.9% 1000 ML 100 ML IV PRN (18:18)
[2016-05-17] MEDS ORDERED: PROCRIT IV PRN (18:18)
[2016-05-17] MEDS: ZOFRAN IV PRN (20:24)
== END 2016-05-17 20:40 | DRG 477 ==
LOC: ED 13:18 → 3A 23:08 → UNDODISIN 05-17 20:40
PROVIDERS: ADMIT Internal Medicine; ATTEND Internal Medicine
PROC: 5A1D60Z (ICD-10-PCS; 2016-05-13)
PROC: 0QB03ZX Excision of Lumbar Vertebra, Percutaneous Approach, Diagnostic (ICD-10-PCS; principal; 2016-05-14)
DX: M46.45 Discitis, unspecified, thoracolumbar region (principal); N18.6 End stage renal disease; N17.9 Acute kidney failure, unspecified; I12.0 Hypertensive chronic kidney disease with stage 5 chronic kidney disease or end stage renal disease; N25.81 Secondary hyperparathyroidism of renal origin; M19.90 Unspecified osteoarthritis, unspecified site; F32.9 Major depressive disorder, single episode, unspecified; I25.10 Atherosclerotic heart disease of native coronary artery without angina pectoris; E11.22 Type 2 diabetes mellitus with diabetic chronic kidney disease; K21.9 Gastro-esophageal reflux disease without esophagitis; L89.159 Pressure ulcer of sacral region, unspecified stage; D63.1 Anemia in chronic kidney disease; E11.40 Type 2 diabetes mellitus with diabetic neuropathy, unspecified; Z99.2 Dependence on renal dialysis; I25.2 Old myocardial infarction; Z95.2 Presence of prosthetic heart valve; Z90.89 Acquired absence of other organs; Z87.891 Personal history of nicotine dependence; Z89.511 Acquired absence of right leg below knee; Z89.612 Acquired absence of left leg above knee; Z79.82 Long term (current) use of aspirin; Z79.899 Other long term (current) drug therapy; Z82.49 Family history of ischemic heart disease and other diseases of the circulatory system; Z91.81 History of falling
CPT/HCPCS: 20220; 36415; 70450; 72080; 72125; 72131; 72158; 77012; 80048; 82164; 82962; 85014; 85018; 85025; 85652; 86140; 87040; 87075; 87102; 87116; 87220; 88172; 88173; 88304; 88305; 88307; 88333; 96365; 96366; 96368; 96375; A9270-GY; A9577; J0692; J1650; J2250; J2270; J2405; J2543; J3010; J3370; J7030; J7050

== ENCOUNTER 2017-03-26 09:47 | Outpatient (CLI) | payer MEDICARE ==
--- NOTE | 2017-03-27 07:43 | Magnetic Resonance Report ---
MR PELVIS WITHOUT CONTRAST History: Left renal mass Technique: Multiple T1 and T2-weighted images with and without fat suppression. Findings: Compared to the CT abdomen pelvis with contrast dated 02/09/17. This exam is severely limited secondary to excessive patient motion. There is a large amount of stool in the distal colon and rectal vault consistent with severe constipation or possibly fecal impaction. No obvious colonic or rectal mass. The bladder is partially distended and unremarkable. Normal prostate gland. There is no evidence for pelvic mass or fluid collection. Bone marrow signal in the visualized pelvis is within normal limits. Impression: Severe rectosigmoid fecal retention.
--- NOTE | 2017-03-27 09:47 | Magnetic Resonance Report ---
MRI ABDOMEN WITHOUT CONTRAST : 03/26/17 10:00:00 CLINICAL: Left renal mass. COMPARISON :02/13/17 MRI and 02/09/17 CT TECHNIQUE: Axial T1 in phase and opposed phase, coronal and axial T2 and axial T2 fat sat sequences on a 1.5 Carolann magnet without contrast. FINDINGS: The left kidney is small with a numerous account small cysts of varying sizes. The kidney measures approximately 9.4 x 5.3 x 3.7 cm. A posterior perirenal encapsulated fluid collection correlates with what was described as a likely inflammatory process or abscess on the last exam. It is now better defined with a well-defined capsule and heterogeneous central signal it is predominantly hypointense on T1 and hyperintense on T2. It measures approximately 7.7 x 5.7 x 3.8 cm and appears separate from the posterior pararenal space. The posterior pararenal space is abnormal with predominantly hyperintense T1 signal and hypointense T2 signal with septations. This represents a change where there was predominantly hyperintense T2 signal indicative of inflammation on the last exam. The renal collecting system appears nondilated. No urinary calculus is identified. There is a questionable solid left upper pole renal mass measuring 3.1 x 2.2 cm on axial images. A distinct mass is not identified on the coronal images. The right kidney is multicystic and atrophic and measures approximately 10.0 x 6.8 x 4.9 cm. The dominant cyst in the right kidney is in the lower pole and measures 2.6 cm. The right renal collecting system and ureter are nondilated. The liver is normal size but has abnormal signal. The liver is hypointense on both T1 and T2 which is suggestive of iron overload. No liver mass. The hepatic artery and its branches are ectatic and very prominent. The bile ducts are normal. The gallbladder is not identified. The S. stomach and duodenum are abnormal with a relatively thick wall. The spleen is normal. Normal adrenal glands. No ascites. The imaged portions of small bowel and colon are normal. The aorta and inferior vena cava are unremarkable. IMPRESSION: 1. A 9 cm left perinephric abscess which has become better defined since the last exam. Overall decreased inflammation in the left kidney and the perirenal and pararenal soft tissues. 2. A questionable 3 cm left upper pole renal mass on axial sequences. The absence of contrast on this exam is a limiting factor in determining as to whether there is a mass. 3. Multicystic kidneys with atrophy of both kidneys. 4. No hydronephrosis. 5. Abnormal liver signal suggestive of iron overload or hemachromatosis.
== END 2017-03-26 09:48 | disposition home or self-care (01) ==
LOC: MRI 09:47
PROVIDERS: ATTEND Internal Medicine
DX: N28.1 Cyst of kidney, acquired (principal); N26.1 Atrophy of kidney (terminal); N28.89 Other specified disorders of kidney and ureter; K59.00 Constipation, unspecified
CPT/HCPCS: 72195; 74181

== ENCOUNTER 2017-07-11 13:29 | Outpatient (CLI) | payer MEDICARE ==
[~2017-07-11 13:29] MED LIST: BABY ASPIRIN ONE
--- NOTE | 2017-07-13 11:11 | Magnetic Resonance Report ---
MRI ABDOMEN WITHOUT CONTRAST : 07/11/17 14:00:00 CLINICAL: Followup left upper pole renal mass and followup left perinephric abscess. COMPARISON :03/26/17 and 02/13/17 TECHNIQUE: Axial T1 in phase and opposed phase, coronal and axial T2 fat sat and axial STIR sequences without contrast on a 1.5 Carolann magnet. FINDINGS: The previously described inflammatory changes and abscess of the left kidney have resolved. Both kidneys are small with too numerous to count cysts, most measuring less than 1 cm. The largest cyst on the left measures 1.2 cm and the largest right cyst measures 2.2 cm in the lower pole. A few of the cysts are hyperintense on T1 which is indicative of mild hemorrhage within the cysts. The renal collecting systems and ureters are nondilated. The previously described mass of the upper pole of the left kidney persists and measures approximately 2.0 x 2.0 cm. No other solid mass is identified. The adrenal glands are normal. The liver is normal size with normal contour and signal. Mild dilatation of intrahepatic bile ducts with no gallbladder identified. The common hepatic duct measures 7 mm. The distal CBD is normal size. The pancreas is small and unremarkable. Normal stomach. A spleen is not identified. The imaged portions of small bowel and colon are normal. No ascites. No retroperitoneal lymphadenopathy identified. IMPRESSION: 1. Resolution of left renal inflammation and abscesses. 2. A 2 cm left upper pole renal mass is suspicious for renal cell carcinoma and is not significantly changed compared to prior exam. A contrast exam may be helpful for confirming neoplasm. 3. Too numerous to count bilateral benign renal cysts, a few of which are hemorrhagic. 4. Mild biliary dilatation presumably status post cholecystectomy.
== END 2017-07-11 13:30 | disposition home or self-care (01) ==
LOC: MRI 13:29
PROVIDERS: ATTEND Urology
DX: D41.02 Neoplasm of uncertain behavior of left kidney (principal); N28.1 Cyst of kidney, acquired
CPT/HCPCS: 74181

== ENCOUNTER 2017-08-16 07:54 | Outpatient (CLI) | payer MEDICARE ==
--- NOTE | 2017-08-19 08:01 | Magnetic Resonance Report ---
MR ABDOMEN WITH AND WITHOUT CONTRAST HISTORY: Neoplasm of uncertain behavior of left kidney TECHNIQUE: Multisequence, multiplanar MRI with and without fat suppression. Postcontrast dynamic imaging T1 fat-sat following IV contrast. COMPARISON: Previous ultrasound, CT abdomen pelvis, and multiple MR abdomens dated back to 02/09/17. FINDINGS: The kidneys are atrophic measuring approximately 8 cm in length. There are too many to count relatively small renal cysts some of which contain mild hemorrhagic change. These findings are unchanged. Left perinephric abscess or hematoma has resolved since previous studies. The previously described 2 cm soft signal intensity lesion at the superior pole of the left kidney is unchanged over multiple previous exams. I am not entirely convinced this represents a renal neoplasm. This may represent a focal area of normal renal parenchyma surrounded by numerous cysts. There is no evidence for enhancement or neovascularity. No retroperitoneal adenopathy. The renal veins are patent. The visualized ureters are normal course and caliber. The liver remains unremarkable. Cholecystectomy is noted. No biliary dilatation. Spleen is normal size and homogeneous. There is mild pancreatic atrophy but no evidence for mass or inflammatory changes. The adrenal glands are within normal limits. The aorta is normal caliber. The visualized bowel loops are unremarkable. The appendix is not included/visualized. No evidence for ascites, abscess or inflammatory changes. Normal bone marrow signal in the visualized spine. Heart size is normal with dense calcifications or artifact near the aortic valve. IMPRESSION: No change in the 2 cm masslike lesion at the superior pole left kidney. Please see above. Consider surveillance.
== END 2017-08-16 07:55 | disposition home or self-care (01) ==
LOC: MRI 07:54
PROVIDERS: ATTEND Radiology Diagnostic Radiology
DX: D41.02 Neoplasm of uncertain behavior of left kidney (principal); N28.1 Cyst of kidney, acquired; N26.1 Atrophy of kidney (terminal); K86.89 Other specified diseases of pancreas; I70.0 Atherosclerosis of aorta; Z90.49 Acquired absence of other specified parts of digestive tract
CPT/HCPCS: 36415; 74183; 82565; 84520; A9577

== ENCOUNTER 2017-11-05 13:55 | Outpatient (CLI) | payer MEDICARE ==
--- NOTE | 2017-11-05 15:31 | Magnetic Resonance Report ---
MR ABDOMEN WITHOUT CONTRAST History: Neoplasm of left kidney. Technique: Multiple T1 and T2-weighted images with and without fat suppression. Comparison: Multiple previous MRs, ultrasounds and CTs of the abdomen with the most recent being 08/16/17. Findings: The kidneys remain atrophic with too many to count cysts. Some of the cysts demonstrate hemorrhagic change which is unchanged since the previous exam. The previously described 2 cm masslike lesion at the superior pole of the left kidney remains unchanged. I suspect this is a pseudomass. I suspect this is a focal area of renal parenchyma surrounded by multiple cysts. There is no evidence for neovascularity, enlargement, perinephric adenopathy or renal vein thrombosis. No hydronephrosis has developed. The spleen is normal size and contour but demonstrates decreased signal throughout consistent with hemosiderosis. The gallbladder has been surgically removed. No biliary dilatation. The liver, pancreas, adrenal glands, aorta and visualized bowel loops remain unremarkable. No evidence for inflammatory changes, adenopathy or ascites. Impression: No change. See above.
== END 2017-11-05 13:56 | disposition home or self-care (01) ==
LOC: MRI 13:55
PROVIDERS: ATTEND Urology
DX: D41.02 Neoplasm of uncertain behavior of left kidney (principal); I12.0 Hypertensive chronic kidney disease with stage 5 chronic kidney disease or end stage renal disease; E11.22 Type 2 diabetes mellitus with diabetic chronic kidney disease; N18.6 End stage renal disease; I25.10 Atherosclerotic heart disease of native coronary artery without angina pectoris; E78.5 Hyperlipidemia, unspecified; K21.9 Gastro-esophageal reflux disease without esophagitis; F32.9 Major depressive disorder, single episode, unspecified; Z89.511 Acquired absence of right leg below knee; Z89.612 Acquired absence of left leg above knee; Z87.891 Personal history of nicotine dependence; Z90.49 Acquired absence of other specified parts of digestive tract
CPT/HCPCS: 74181